=== PATIENT | female | born 1975 | race Caucasian/White ===

== ENCOUNTER → 2017-09-28 12:12 | Outpatient (CLI) | payer OTHER, SELFPAY ==
--- NOTE | 2017-09-28 12:16 | HPBI_ITS ---
MAMMOGRAPHY - BILATERAL DIAGNOSTIC REASON FOR EXAM: Female, 42 years old. Bilateral breast lumps. PERTINENT HISTORY: Non-contributory. TECHNIQUE: Digital bilateral breast audrey (3D mammographic acquisition) in the CC and MLO projections. 2-D mediolateral oblique (MLO) and craniocaudad (CC) views of both breasts were obtained. CAD: Full Field Digital Mammography with Computer Added Detection was performed. COMPARISON: None. Baseline examination. FINDINGS: Breast Composition: There are scattered areas of fibroglandular density. There are no dominant masses or suspicious calcifications. Small axillary lymph nodes are seen in both axillary regions. No other significant abnormalities are identified. HPBI/DIAG MAMM W/CAD, BILAT IMPRESSION: Negative diagnostic mammogram. With the patient's history of bilateral palpable nodules, correlation with ultrasound is recommended. ASSESSMENT CATEGORY: BIRADS Category 0: Incomplete. Need additional imaging evaluation. A letter regarding these results will be sent to the patient by the facility within 30 days. Approximately 10% of breast cancers are not detected by mammography. A normal mammogram should not delay biopsy of a clinically suspicious abnormality. Electronically Signed: Lino Munoz MD at 16:00 EDT Tel [phone], Service support ,
--- NOTE | 2017-09-28 12:16 | US_ITS ---
STUDY: ULTRASOUND BREAST - RIGHT REASON FOR EXAM: Female, 42 years old. Palpable lump in the right breast. TECHNIQUE: Axial and longitudinal images of the RIGHT breast were performed with a high resolution ultrasound transducer. COMPARISON: None. FINDINGS: RIGHT Breast: The upper half of the right breast was examined by ultrasound. There is homogeneous fibroglandular tissue. No solid or cystic mass lesion is seen. IMPRESSION: Unremarkable sonographic examination of the upper half of the right breast. ASSESSMENT CATEGORY: BIRADS Category 1: Negative. A letter regarding these results will be sent to the patient by the facility within 30 days. Electronically Signed: Lino Munoz MD at 13:26 EDT Tel [phone], Service support , STUDY: ULTRASOUND BREAST - LEFT REASON FOR EXAM: Female, 42 years old. Palpable lump left breast. TECHNIQUE: Axial and longitudinal images of the LEFT breast were performed with a high resolution ultrasound transducer. COMPARISON: None. FINDINGS: LEFT Breast: The upper half of the left breast was examined by ultrasound. There is a homogeneous fibroglandular tissue. No solid or cystic mass lesion is seen. US/Breast Limited Unilateral IMPRESSION: Unremarkable sonographic examination of the upper half of the left breast. ASSESSMENT CATEGORY: BIRADS Category 1: Negative. A letter regarding these results will be sent to the patient by the facility within 30 days. Electronically Signed: Lino Munoz MD at 13:27 EDT Tel [phone], Service support ,
== END ==
PROVIDERS: Family Provider Family Medicine; PCP Family Medicine; Visit Provider Obstetrics & Gynecology
DX: N60.11 Diffuse cystic mastopathy of right breast (principal); N60.12 Diffuse cystic mastopathy of left breast; N63.10 Unspecified lump in the right breast, unspecified quadrant; N63.20 Unspecified lump in the left breast, unspecified quadrant
CPT/HCPCS: 76642; 77062; 77066; G0279

== ENCOUNTER → 2018-06-15 10:56 | Outpatient (CLI) | payer OTHER, SELFPAY ==
[2018-06-15 14:35] LABS: Anion Gap 8 (5-15); BUN 6 mg/dL (7-18); BUN/Creat Ratio 8.4 RATIO (10-20); Calcium,Total 9.3 mg/dL (8.5-10.1); Chloride 104 mmol/L (98-107); Cholesterol 266 mg/dL (200); Creatinine, Serum 0.72 mg/dL (0.55-1.02); EST Glomerular Filtration Rate 95 mL/min (>60); Est Glom Filt Rate - Afr Amer 115 mL/min (>60); Glucose 80 mg/dL (74-106); High Density Lipoprotein 35 mg/dL; Sodium Level 141 mmol/L (136-145); Triglycerides 334 mg/dL; Very Low Density Lipoprotein 67 mg/dL (5-40)
--- OUTSIDE RECORDS SUMMARY | 2018-08-10 08:32 | XMS RPT_ITS ---
:1975 Author Organization OHIP Care Team Providers Name Role Phone KENRICKMIGUEL ([facility]) Attending Unavailable Jade Triplett Attending Unavailable Jolliff, Fallon Referring Unavailable Jolliff, Fallon Primary Care Unavailable Jade Triplett Attending Unavailable Jolliff, Fallon Primary Care Unavailable MarcJade conklin Referring Unavailable Jolliff, Fallon Attending Unavailable Jolliff, Fallon Primary Care Unavailable PROBLEMS PROBLEMS DATE TYPE CONDITION / CODE ATTENDING STATUS SOURCE 09/21/2017 Unknown Z12.31 - Betty Triplett Encounter for [facility] mammogram for Repository malignant neoplasm of breast / Z12.31(ICD-10) PROCEDURES PROCEDURES No Procedure Records FoundRESULTS RESULTS BASIC METABOLIC Collected: 06/15/2018 Status: F Source: [place] PROFILE (BMP) 10:57 AM [facility] REPOSITORY TYPE CODE TESTS RESULT OUT OF RANGE REFERENCE UNITS LAB L501.0100 74-106 mg/dL Normal GLU 80 Result Comment: Please note revised GLUCOSE reference range effective 2017. LAB L501.1000 7-18 mg/dL Low BUN 6 LAB L501.1100 0.55-1.02 mg/dL Normal CREAT,SERUM 0.72 Result Comment: The validity of the calculated GFR AND GFRAA in patients over 70 years has not been determined. Clinical correlation is essential. LAB L501.1110 >60 mL/min Normal EST GFR 95 Result Comment: Non- GFR Calc LAB L501.1115 >60 mL/min Normal EST GFR - AA 115 Result Comment: GFR Calc LAB L501.1300 10-20 RATIO Low BUN/CRE 8.4 LAB L501.2200 8.5-10.1 mg/dL Normal CA 9.3 LAB L501.5300 136-145 mmol/L Normal NA 141 LAB L501.5600 3.5-5.1 mmol/L Normal K 4.0 LAB L501.5900 98-107 mmol/L Normal CL 104 LAB L501.6100 21.0-32.0 mmol/L Normal CO2 29.0 LAB L501.6200 5-15 Normal GAP 8 Performed By: #### L500.2500, L500.4100 #### [facility] [address]. [place], [place], [id number] LIPID PROFILE Collected: 06/15/2018 Status: F Source: [place] 10:57 AM [facility] REPOSITORY TYPE CODE TESTS RESULT OUT OF RANGE REFERENCE UNITS LAB L501.4900 200 mg/dL High CHOL 266 Result Comment: <200 mg/dL Desirable 200-240 mg/dL Borderline >240 mg/dL High Risk LAB L501.5000 mg/dL High TRIG 334 Result Comment: The drugs N-Acetylcysteine and Metamizole may falsely depress this assay. Serum Triglycerides Reference Interval Normal <150 mg/dL Borderline high 150 - 199 mg/dL High 200 - 499 mg/dL Very High > or = 500 mg/dL LAB L501.6400 mg/dL Low HDL 35 Result Comment: The drugs N-Acetylcysteine and Metamizole may falsely depress this assay. Reference Range HDL <40 mg/dL Low HDL Cholesterol HDL >or= 60 mg/dL High HDL Cholesterol LAB L501.6500 0-130 mg/dL High LDL 164 LAB L501.6600 5-40 mg/dL High VLDL 67 Performed By: #### L500.2500, L500.4100 #### [facility] [address]. [place], [place], [id number] PROGRESS Observed: 04/01/2018 Status: COMPLETED Source: [place] 3:02 PM [facility] REPOSITORY O ID: [id number] Author: Miguel Martinez Service: (none) Author Type: Nurse Practitioner Type: Progress Notes Filed: 04/01/2018 4:30 PM Note Text: Telemedicine Visit - Distance Health Virtual Visit Note Patient seen on [facility] Care Online platform. Location of patient: [place] History of Present Illness Mindi Corral is a 42 year old old female presenting with right lower extremity skin concerns. History was obtained from: patient The problem is on the right lower leg(s) for the past 10 day(s) and is gradually worsening. The skin described as painful and burning. Symptoms began while working at [employer], constantly walking and standing since 03/24 (6 days) and developed pressure ulcers on her right foot due to wearing cowboy boots. Boots became wet and uncomfortable while walking and standing in the rainy weather. The prior dermatologic history includes no rash like this. The patient reports no new exposures The patient also complains of joint tenderness and burning sensation The patient denies no other pertinent symptoms. The patient has tried rubbing alcohol for relief. PAST MEDICAL HISTORY Diagnosis Date - Fibroids Uterine - Hyperlipidemia - Hypertension PAST SURGICAL HISTORY Procedure Laterality Date - DELIVERY ONLY 08/2004, 03/2008 - F OVARIAN CYSTECTOMY 1995 - HYSTERECTOMY HX 2009 fibroids - LAP REPAIR BLADDER INJURY 03/2008 Bladder cut with c/s - LAPAROSCOPIC CHOLEYCYSTECTOMY 09/2004 - LAPAROSCOPY W/LYSIS OF ADHESION 06/1996 FAMILY HISTORY Problem Relation Age of Onset - Hypertension Mother - Thyroid Mother - Hypertension Father - Heart Father ID - Diabetes Father - Lipids Father - Thyroid Father - Hypertension Maternal Grandmother - Diabetes Maternal Grandmother - Lipids Maternal Grandmother - Thyroid Maternal Grandmother - Hypertension Maternal Grandfather - Lipids Maternal Grandfather - Cancer Maternal Grandfather skin, lymphoma, prostate - Hypertension Paternal Grandmother - Hypertension Paternal Grandfather - Stroke Paternal Grandfather - Thyroid Maternal Uncle ALLERGIES No Known Allergies bisoprolol-hydrochlorothiazide (ZIAC) 5-6.25 mg per tablet Take 1 tablet by mouth once daily. DULoxetine (CYMBALTA) 60 mg capsule Take 60 mg by mouth once daily. LORazepam 1 mg tablet Take 1 mg by mouth as needed. mupirocin (BACTROBAN) 2 % ointment Apply 1 application to affected area twice daily for 10 days. cephALEXin (KEFLEX) 500 mg capsule Take 1 capsule by mouth twice daily for 7 days. ibuprofen (MOTRIN) 800 mg tablet Take 1 tablet by mouth every 8 hours as needed for Pain. CPAP Video Exam (Examination performed via Video enabled technology) General appearance: Alert, oriented, pleasant, in NAD :Yes Ill appearing :No Lethargic appearing :No Respiratory distress :No Skin: right anterior ankle small dime size ulcer appears dry with erythematous pressure point. +tenderness with self palpation and warm to touch. Right foot dorsal dime size ulcer appears dry with erythematous pressure point. +tenderness with self palpation and warm to touch. ASSESSMENT/PLAN: 1. Skin infection - ICD9: 686.9, ICD10: L08.9 - Begin treatment with Cephalaxin (Keflex) - No lymphangetic streaking, this was defined for patient to watch for and to seek medical care immediately if appears - Follow up for recheck in three days - MUPIROCIN 2 % TOPICAL OINTMENT - CEPHALEXIN 500 MG CAPSULE - IBUPROFEN 800 MG TABLET - Dry skin care instructions reviewed - Use mild soap like Dove, Aveeno or Cetaphil - Do not scratch and break the skin; keep area clean and dry - Use cool compresses as needed - Avoid exposure to irritant if known -wear comfortable form fitted shoes. - Advise to elevate extremity and ice 2-3x daily - Follow up if symptoms persist or worsen. - Red flags discussed for immediate in person care - All questions answered Miguel Martinez APRN.DRAIN CLEANER PLUMBER If you let us know who your primary care provider is, we will send them a notification of today?s visit through our electronic medical records system. Since not all providers have access to our notifications, we strongly encourage you to share the following record of today?s visit with your primary care provider at your next visit. This will help in providing you the best care. EXPRESS CARE PATIENT INFO SKIN INFECTION OVERVIEW Cellulitis is an infection of the skin and soft tissue of the skin. The infection is usually caused by bacteria that normally live on the skin, such as staphylococci (Staph) or streptococci (Strep). The infection develops when there is a break in the skin, such as a wound or injury, which may be minor. This allows bacteria to enter the skin and grow, causing infection and swelling. Most cases of cellulitis are mild and heal completely with antibiotic treatment. However, the infection can become severe and cause a bodywide infection if left untreated. It is important to seek medical care promptly if you could have a skin infection. SKIN INFECTION RISK FACTORS Certain conditions increase the risk of developing cellulitis. These include: ? Recent injury to the skin (a wound, abrasion, cut, recent shaving, or injection drug use) ? Swelling of the skin due to radiation therapy ? Current skin infection, such as athlete's foot or impetigo ? Accumulation of fluid (edema) due to poor circulation, heart failure, liver disease, or past surgery to remove lymph nodes ? Being overweight ? Chronic skin conditions, such as eczema or psoriasis However, cellulitis can also develop in people who have no known risk factors. SKIN INFECTION SYMPTOMS Cellulitis ? The most common symptom of cellulitis is pain or tenderness. Other cellulitis symptoms can include swelling, warmth, and redness in a distinct area of skin. These symptoms usually worsen and the redness may expand over the course of a few days. The skin is usually smooth and shiny rather than raised or bumpy. Fever and chills are not common. The most common areas of the body for cellulitis to develop include the legs and the arms; it can also develop around the eye, on the abdominal wall, in the mouth, and around the anus. Other skin infections ? Other types of skin infections include abscesses, furuncles (boils), and carbuncles. These usually cause a collection of pus under the skin. Skin that is raised, reddened, tender, and pus-filled may be caused by a skin infection known as methicillin-resistant Staphylococcus aureus (MRSA). DO I NEED TO BE EXAMINED? There are many types and causes of skin infections, and it is important to know the most likely cause of the infection before beginning treatment. Using the wrong treatment could allow the infection to worsen. To ensure that the correct treatment is used, it is important to be evaluated by a healthcare provider. SKIN INFECTION TREATMENT Cellulitis treatment includes antibiotics as well as treatment of any underlying condition that led to the skin infection. Elevate the area ? Elevating the arm or leg above the level of the heart can help to reduce swelling and speed healing. Keep the area clean and dry ? It is important to keep the infected area clean and dry. You can shower or bathe normally, and pat the area dry with a clean towel. You can use a bandage or gauze to protect the skin, if needed. Do not use any antibiotic ointments or creams. Antibiotics ? Most people with cellulitis are treated with an antibiotic that is taken by mouth for one to two weeks. The best antibiotic depends upon your situation. If the infection is severe, you may need to be hospitalized and treated with antibiotics given into a vein (IV). It is important to take the antibiotic exactly as recommended and to finish the entire course of treatment. Skipping doses or ending treatment early could potentially allow the bacteria to become resistant and require longer treatment. Time to heal ? The swelling, warmth, and redness should begin to improve within one to three days after starting antibiotics, although these symptoms can persist for two weeks. If the reddened area becomes larger, more swollen, or more tender, call your healthcare provider. He or she may want to reexamine you to determine if further testing or an alternate antibiotic are needed. SKIN INFECTION PROGNOSIS In most cases, you will recover completely from an episode of cellulitis without any complications. If you have skin infection risk factors talk to your healthcare provider to determine if there are steps you can take to minimize the risk of infections in the future. BREAST LIMITED Observed: 09/28/2017 Status: F Source: [place] UNILATERAL 12:16 PM [facility] REPOSITORY [facility] Imaging Services [address] [place] [address] Breast Limited Unilateral MR#: [id number] Acct: [id number] Name: MINDI CORRAL Rep #: [id number] : 1975 F 42 From: Lino Munoz MD PCP: Fallon Guevara MD Status: REG CLI Study: Breast Limited Unilateral Date of Exam: 09/28/17 Exam# [id number] Ordering Dr: Jade Triplett MD STUDY: ULTRASOUND BREAST - RIGHT REASON FOR EXAM: Female, 42 years old. Palpable lump in the right breast. TECHNIQUE: Axial and longitudinal images of the RIGHT breast were performed with a high resolution ultrasound transducer. COMPARISON: None. FINDINGS: RIGHT Breast: The upper half of the right breast was examined by ultrasound. There is homogeneous fibroglandular tissue. No solid or cystic mass lesion is seen. IMPRESSION: Unremarkable sonographic examination of the upper half of the right breast. ASSESSMENT CATEGORY: BIRADS Category 1: Negative. A letter regarding these results will be sent to the patient by the facility within 30 days. Electronically Signed: Lino Munoz MD at 13:26 EDT Tel [phone], Service support , STUDY: ULTRASOUND BREAST - LEFT REASON FOR EXAM: Female, 42 years old. Palpable lump left breast. TECHNIQUE: Axial and longitudinal images of the LEFT breast were performed with a high resolution ultrasound transducer. COMPARISON: None. FINDINGS: LEFT Breast: The upper half of the left breast was examined by ultrasound. There is a homogeneous fibroglandular tissue. No solid or cystic mass lesion is seen. US/Breast Limited Unilateral IMPRESSION: Unremarkable sonographic examination of the upper half of the left breast. ASSESSMENT CATEGORY: BIRADS Category 1: Negative. A letter regarding these results will be sent to the patient by the facility within 30 days. Electronically Signed: Lino Munoz MD at 13:27 EDT Tel [phone], Service support , CC: Fallon Guevara MD; Jade Triplett MD Shipping Room Helper: Signed DIAG MAMM W/CAD, Observed: 09/28/2017 Status: F Source: [place] BILAT 12:16 PM [facility] REPOSITORY [facility] Imaging Services [address] [place] [address] DIAG MAMM W/CAD, BILAT MR#: [id number] Acct: [id number] Name: MINDI CORRAL Rep #: [id number] : 1975 F 42 From: Lino Munoz MD PCP: Fallon Guevara MD Status: REG CLI Study: DIAG MAMM W/CAD, BILAT Date of Exam: 09/28/17 Exam# [id number] Ordering Dr: Jade Triplett MD MAMMOGRAPHY - BILATERAL DIAGNOSTIC REASON FOR EXAM: Female, 42 years old. Bilateral breast lumps. PERTINENT HISTORY: Non-contributory. TECHNIQUE: Digital bilateral breast audrey (3D mammographic acquisition) in the CC and MLO projections. 2-D mediolateral oblique (MLO) and craniocaudad (CC) views of both breasts were obtained. CAD: Full Field Digital Mammography with Computer Added Detection was performed. COMPARISON: None. Baseline examination. FINDINGS: Breast Composition: There are scattered areas of fibroglandular density. There are no dominant masses or suspicious calcifications. Small axillary lymph nodes are seen in both axillary regions. No other significant abnormalities are identified. [facility]/DIAG MAMM W/CAD, BILAT IMPRESSION: Negative diagnostic mammogram. With the patient's history of bilateral palpable nodules, correlation with ultrasound is recommended. ASSESSMENT CATEGORY: BIRADS Category 0: Incomplete. Need additional imaging evaluation. A letter regarding these results will be sent to the patient by the facility within 30 days. Approximately 10% of breast cancers are not detected by mammography. A normal mammogram should not delay biopsy of a clinically suspicious abnormality. Electronically Signed: Lino Muonz MD at 16:00 EDT Tel [phone], Service support , CC: Fallon Guevara MD; Jade Triplett MD Shipping Room Helper: Signed WIND TUNNEL TECHNICIAN OFFICE VISIT Observed: 09/21/2017 Status: F Source: [place] REPORT 1:24 PM [facility] [address] [place] [address]. 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 Required: No Accompanied by: Self Is patient in pain?: Yes (RLQ) Pain scale (1-10): 2 Allergies ciprofloxacin [From Cipro] Adverse Reaction (Verified 11/25/13 12:46) Vomiting ciprofloxacin HCl [From Cipro] Adverse Reaction (Verified 11/25/13 12:46) Vomiting Sulfa (Sulfonamide Antibiotics) Adverse Reaction (Verified 11/25/13 12:46) Vomiting Medications Bisoprol/Hydrochlorothiazide [Ziac 5/6.25 MG (Beta Kelsy)] 11/25/13 [History Confirmed 09/21/17] Lorazepam [Ativan] 1 mg PO 11/25/13 [History Confirmed 09/21/17] duloxetine 60 mg capsule,delayed release 60 mg PO QDAY 09/21/17 [History Confirmed 09/21/17] Is last menstrual period known: No Post menopausal: No Patient : No : No PFSH Medical History Anxiety (Chronic) Depression (Chronic) Hypertension (Chronic) Scar tissue (Resolved 1995) bladder (Resolved 2007) Surgical History H/O section (Resolved) H/O: hysterectomy (Resolved 2009) Hx of cholecystectomy (Resolved 2004) Ovarian cyst (Resolved 1995) Family History Father Heart disease Diabetes Type 2 Hyperlipidemia Mother Thyroid disorder Social History adopted: No household members: family housing: house number of children: 2 current occupational status: employed current occupation: [employer] Smoking Status: Never smoker second hand exposure: Yes alcohol intake: never substance use type: does not use seatbelt use: always do you feel safe at home: Yes additional social history: Orrie- Pregancy History 6 Elective abortions Hx Para 2 Spontaneous abortions Past Pregnancies Del. 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 Last PAP: History of abnormal PAP: no Last mammogram: History of abnormal mammogram: Colon cancer screening: Other preventative health care screenings: Female Reproductive History Questions: Metorrhagia: No, Sexually active: Yes, Dyspareunia: No Menopausal Symptoms: Yes hot flashes, Yes night sweats, No weight change, No mood changes, No difficulty concentrating, No sleep problems, No change in libido ROS Const Constitutional: Reports as per HPI, weight loss (intentional) and night sweats; denies poor appetite, fatigue, increased appetite or weight gain Cardio Card: Denies chest pain Resp Resp: Denies dyspnea or cough GI GI: Reports as per HPI; denies bloating, abdominal pain, constipation, vomiting or nausea : Reports as per HPI, urinary frequency, other and hot flashes; denies blood in urine, vaginal odor, vaginal itching, vaginal dryness, vaginal discharge, urinary urgency, urinary incontinence, pelvic pain, painful urination, difficulty urinating, prolapse symptoms or nipple discharge Skin Skin/Breast: Denies nipple discharge, breast pain, breast skin changes, breast lump or changing lesions Psych Psych: Denies difficulty concentrating or change in sex drive Exam Const General: cooperative, healthy appearing, comfortable, no acute distress, well developed, well groomed HENMT Head: normal to inspection, normocephalic Ears: hearing grossly normal bilaterally, external ears normal Nose: external nose normal Face and sinus: normal facial exam Neck Neck: normal visual inspection, full ROM, no lymphadenopathy Thyroid: thyroid normal Chest Chest palpation AND inspection: normal inspection of the chest Breast inspection: normal inspection of the breasts, normal inspection of the axillae Breast palpation: normal palpation of the axillae, no axillary lymphadenopathy, abnormal palpation of the breast (right 2x1 cm cystic area 6 o clock, left 4 o clock 1 cm nodular area) Resp Effort AND Inspection: normal respiratory effort GI Inspection: normal to inspection, non-distended Palpation: no guarding, soft, no hepatosplenomegaly General: bladder normal to palpation External Female Exam: normal external appearance, normal appearance of the urethra, no lesions Urethra: normal appearance of the urethra, normal palpation Speculum Exam - Vagina: normal appearance of the vagina, normal vaginal discharge Bimanual Exam- Vagina AND Uterus: bladder normal to palpation Bimanual Exam- Adnexa, other: normal adnexae, no adnexal masses, adnexae non-tender Skin General: no rashes or lesions noted Neuro General: alert, moves all extremities, no focal motor deficits Extrem General: no pedal edema, normal to inspection Psych Appearance: grossly normal Mental Status: mental status grossly normal Affect: normal affect Speech and Movement: speech and movement normal Attitude: cooperative Assessment AND Plan Problems 1. Encounter for gynecological examination without abnormal finding Z01.419 2. Bilateral breast lump N63.10; N63.20 3. Bilateral fibrocystic breast changes N60.11; N60.12 Plan Cervical cancer screening: na [facility] Breast cancer screening: diag mamm and us ordered other health maintenance examination reviewed and up to date. Encouraged maintenance of a healthy weight and active lifestyle and handout given. Calcium/vitamin D recommendations provided. Annual exam handout including recommendations for good health guidelines and basic screening information given. Problem list up to date, see problem list details for any additional plan information. Follow up in one year for annual health maintenance exam or sooner if needed. Orders Orders: Medications Discontinued: oxycodone-acetaminophen 5-325 mg Disconti1 - 2 tabs PO Q4H PRN PRN Pain Carito cooper Reason: Pt no longer taking Coding Level of Care Code Off vis,est,prev 18-39yrs Diagnoses Encounter for gynecological examination without abnormal finding Z01.419 Gynecological examination findings: abnormal findings ABSENT Bilateral breast lump N63.10; N63.20 Bilateral fibrocystic breast changes N60.11; N60.12 09/21/17 1324 <Electronically signed by Jade Triplett MD> Date Jade Triplett MD Cosigner Signature: Date (if applicable) CC: ALLERGIES ALLERGIES DATE TYPE / CODE NAME / CODE REACTION SEVERITY SOURCE 11/27/2013 DRUG CIPROFLOXACIN Vomiting [facility] INGREDI/419 [address] [place] [address]39[address]([facility] Repository ED CT) 11/27/2013 Drug SULFA (SULFONAMIDE Vomiting [facility] Class/57042 ANTIBIOTICS) [place] 1003(SNOMED Repository CT) 11/25/2013 Drug ciprofloxacin Vomiting Unknown Geoffrey Allergy/416 HCl/[id number](RXNO Community 008316([facility] ED CT) Repository 11/25/2013 Drug Sulfa (Sulfonamide Vomiting Unknown Geoffrey Allergy/416 Antibiotics)/O40570 Community 119475([facility] 0491([facility] ED CT) Repository 11/25/2013 Drug ciprofloxacin/F0060 Vomiting Unknown Geoffrey Allergy/416 66965(RXNORM) Community 125496([facility] ED CT) Repository ENCOUNTERS ENCOUNTERS ADMIT/DISCHARGE ACCOUNT ADMITTING ENCOUNTER LOCATION SOURCE NUMBER CLASS 06/15/2018 [id number] [facility] ing:MFPLAB Repository 04/01/2018/04/02/20 [id number] Ambulatory [address] [place] Repository 09/28/2017 [id number] Ambulatory [facility] ing:US Repository 09/21/2017/09/22/19 [id number] Ambulatory BMS[address] [place] [address] [place].[facility] Repository PAYERS PAYERS ENCOUNTER GUARANTOR PAYER SUBSCRIBER SOURCE 06/15/2018 MINDI [id number] Insurance:AETNAPolicy FlickingerDOB: Community ANGLING [place]: [id number] Repository [address]Rrf: [phone]) Date:[id number] [phone] (HP) [id number] [place] [id number]: 06/15/2018 Secondary NOT GIVENUNK [place] Insurance:SELF PAY [facility] Effective Repository Date:2018-06-15 09/28/2017 MINDI Primary Ora L Geoffrey [id number] Insurance:AETNAPolicy FlickingerDOB: Community AN[place]ING Number: [id number] [place], [place] [id number] Repository [address]Puh: [phone]) Date:[id number] [phone] (HP) [id number] [place] [id number]: 09/28/2017 Secondary NOT GIVENUNK [place] Insurance:SELF PAY [facility] Number: Effective Repository Date:2017-09-22 09/21/2017 MINDI Primary Ora L Geoffrey [id number] Insurance:AETNAPolicy FlickingerDOB[facility] ANGLING Number: [id number] Repository 33325Wwq: ([phone]) Date:[phone] (HP) [id number] [address]VB: 09/21/2017 Secondary NOT GIVENUNK [place] Insurance:SELF PAY [facility] Number: Effective Repository Date:2017-08-16
== END ==
LOC: MFPLAB 10:56
PROVIDERS: Family Provider Family Medicine; PCP Family Medicine; Visit Provider Family Medicine
DX: I10 Essential (primary) hypertension (principal)
CPT/HCPCS: 36415; 80048; 80061

== ENCOUNTER → 2018-12-26 | Outpatient (CLI) | payer OTHER, SELFPAY ==
[2017-09-21 11:38] VITALS: BMI 30.4
[2018-12-26 18:47] LABS: Anion Gap 4 (5-15); BUN 6 mg/dL (7-18); BUN/Creat Ratio 8.7 RATIO (10-20); Calcium,Total 9.6 mg/dL (8.5-10.1); Chloride 102 mmol/L (98-107); Creatinine, Serum 0.69 mg/dL (0.55-1.02); EST Glomerular Filtration Rate 99 mL/min (>60); Est Glom Filt Rate - Afr Amer 120 mL/min (>60); Glucose 82 mg/dL (74-106); Potassium 3.9 mmol/L (3.5-5.1); Sodium Level 137 mmol/L (136-145)
== END | disposition home or self-care (01) ==
LOC: MFPLAB 14:55
PROVIDERS: Family Provider Family Medicine; PCP Family Medicine; Referring Provider Family Medicine; Visit Provider Family Medicine
DX: I10 Essential (primary) hypertension (principal)
CPT/HCPCS: 36415; 80048

== ENCOUNTER → 2019-12-03 16:48 | Outpatient (CLI) | payer MEDICAID, SELFPAY ==
[2017-09-21 11:38] VITALS: BMI 30.4
[2019-12-03 18:17] LABS: AST(SGOT) 12 U/L (15-37); Alanine Aminotransfer ALT/SGPT 17 U/L (13-56); Anion Gap 7 (5-15); BUN 5 mg/dL (7-18); BUN/Creat Ratio 7.1 RATIO (10-20); Calcium,Total 9.8 mg/dL (8.5-10.1); Chloride 102 mmol/L (98-107); Cholesterol 306 mg/dL (200); Creatinine, Serum 0.71 mg/dL (0.55-1.02); EST Glomerular Filtration Rate 96 mL/min (>60); Est Glom Filt Rate - Afr Amer 116 mL/min (>60); Glucose 81 mg/dL (74-106); High Density Lipoprotein 37 mg/dL; Potassium 3.7 mmol/L (3.5-5.1); Sodium Level 139 mmol/L (136-145); Triglycerides 396 mg/dL; Very Low Density Lipoprotein 79 mg/dL (5-40)
== END ==
PROVIDERS: PCP Family Medicine; Referring Provider Family Medicine; Visit Provider Family Medicine
DX: I10 Essential (primary) hypertension (principal); E78.5 Hyperlipidemia, unspecified
CPT/HCPCS: 36415; 80048; 80061; 84450; 84460

== ENCOUNTER 2020-08-19 17:24 | Outpatient (RCR) | payer OTHER, MEDICAID, SELFPAY ==
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
== END 2020-08-19 19:00 | disposition home or self-care (01) ==
LOC: PT 17:24
PROVIDERS: PCP Family Medicine; Referring Provider Family Medicine; Visit Provider Family Medicine
DX: M50.10 Cervical disc disorder with radiculopathy, unspecified cervical region (principal)
CPT/HCPCS: 97162

== ENCOUNTER → 2020-08-26 | Outpatient (CLI) | payer MEDICAID, SELFPAY | END | disposition home or self-care (01) | LOC: LABSPEC 10:27 | PROVIDERS: PCP Family Medicine; Visit Provider Family Medicine | DX: Z20.822 Contact with and (suspected) exposure to COVID-19 (principal) | CPT/HCPCS: 87635; U0005; U0003 ==

== ENCOUNTER → 2020-10-12 10:47 | Outpatient (CLI) | payer OTHER, SELFPAY ==
[2020-09-14 13:18] VITALS: BMI 30.7
--- NOTE | 2020-10-12 10:48 | MRI_ITS ---
STUDY: MRI CERVICAL SPINE WITHOUT CONTRAST REASON FOR EXAM: Female, 45 years old. CERVICALGIA TECHNIQUE: Standardized fat and water weighted pulse sequences were obtained in the sagittal and axial planes. COMPARISON: None FINDINGS: Normal foramen magnum and brainstem-cervical cord junction. There is straightening of the normal cervical lordosis. C2-3: There is minimal disc space narrowing and endplate spondylosis. There is no significant disc herniation, central canal or foraminal stenosis. C3-4: There is minimal disc space narrowing and endplate spondylosis. There is no significant disc herniation, central canal or foraminal stenosis. C4-5: There is moderate disc space narrowing and endplates spondylosis. Moderate disc osteophyte complex with severe central canal stenosis. Uncovertebral arthropathy with moderate right and mild left foraminal stenosis. C5-6: There is moderate disc space narrowing and endplates spondylosis. Moderate disc osteophyte complex with severe central canal stenosis and impingement of the spinal cord without increased cord signal, consistent with hydrosyringomyelia. Uncovertebral arthropathy with severe right and severe left foraminal stenosis. C6-7: There is moderate disc space narrowing and endplates spondylosis. Moderate disc osteophyte complex with severe central canal stenosis and impingement of the spinal cord without increased cord signal, consistent with hydrosyringomyelia. Uncovertebral arthropathy with mild right and moderate left foraminal stenosis. C7-T1: There is minimal disc space narrowing and endplate spondylosis. There is no significant disc herniation, central canal or foraminal stenosis. MRI/Spine Cervical (Routine) IMPRESSION: C5-C7: Severe central canal stenosis with cord compression. Moderate/severe multilevel degenerative changes as described above. N.B. : The above information has been verbally conveyed by Stefani Chaves MD to Dr. ANASTASIA DASILVA MD, on 10/14/2020 15:31:32 (ET). Electronically Signed: Stefani Chaves MD at 15:32 EDT Tel , Service support ,
== END ==
PROVIDERS: PCP Family Medicine; Referring Provider Orthopaedic Surgery; Visit Provider Orthopaedic Surgery
DX: M54.2 Cervicalgia (principal); G56.20 Lesion of ulnar nerve, unspecified upper limb
CPT/HCPCS: 72141

== ENCOUNTER 2020-10-15 07:46 | Emergency (ER) | payer OTHER, SELFPAY ==
[2020-09-14 13:18] VITALS: BMI 30.7
[2020-10-15 07:47] VITALS: BP 162/103; PULSE 66; RESP 18; TEMP 36.3; O2SAT 99; BMI 32.7
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
[2020-10-15 09:04] VITALS: BP 135/86; PULSE 65; RESP 16; O2SAT 99
== END 2020-10-15 09:04 | disposition home or self-care (01) ==
PROVIDERS: Emergency Provider Emergency Medicine; PCP Family Medicine
DX: Z04.1 Encounter for examination and observation following transport accident (principal); I10 Essential (primary) hypertension; E78.5 Hyperlipidemia, unspecified; V47.0XXA Car driver injured in collision with fixed or stationary object in nontraffic accident, initial encounter; Y93.I9 Activity, other involving external motion; Y92.410 Unspecified street and highway as the place of occurrence of the external cause; Y99.8 Other external cause status
CPT/HCPCS: 70450; 93005; 99284

== ENCOUNTER → 2020-11-19 | Outpatient (CLI) | payer OTHER, SELFPAY ==
[2020-11-06 14:59] VITALS: BMI 30.7
== END | disposition home or self-care (01) ==
LOC: LABSPEC 15:29
PROVIDERS: PCP Family Medicine; Referring Provider Family Medicine; Visit Provider Family Medicine
DX: T81.30XA Disruption of wound, unspecified, initial encounter (principal)
CPT/HCPCS: 87070; 87075; 87077; 87186; 87205

== ENCOUNTER 2020-12-15 14:00 | Outpatient (RCR) | payer OTHER, SELFPAY ==
[2020-11-06 14:59] VITALS: BMI 30.7
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
--- NOTE | 2020-12-07 10:58 | HP.OTEVAL_ITS ---
Patient's Visit Information SUMA HURTADO is a 45 year old F, referred to Occupational Therapy by Dr. Fortino Vargas MD, with a diagnosis of cervical spondylosis with myelopathy right arm weakness. Date of Evaluation: 12/07/20 Occupational Therapist: Savi Cash, ALEKR/Ferdinand, CHT - Subjective This 45 year old female was seen for OT eval with dx of cervical spondylosis with myelopathy right arm weakness. pt underwent c3-T1 fusion on October 20, 2020. pt states her neck is better states prior to sx she would drag her right leg. pt states she had tingling/numbness in bilateral UE//hands. when she woke up from sx she could not use her right arm. left arm she had motion but still has tingling in bilateral hands/arms. 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 with ADLs and IADls. - ADLs Miscellaneous: Handle money (change), Use computer keyboard - ROM ROM Comments: pt demo full ROM - Strength Licensed Final Expense Agents: right 35# left 65# Lateral Pinch: right 16# left 14# Tripod Pinch: right 12# left 16# Tip-to-Tip Pinch: right 12# left 12# - Sensation Thumb: right 3.22 left 3.22 Index: right 3.22 left 3.22 Middle: right 3.22 left 3.22 Ring: right 3.84 left 4.08 Little: right 3.61 left 4.74 - Nine Hole Peg Right: 24.44 sec. Left: 29. 32 sec. - Quick DASH-Disab of Arm,Shoulder& Hand Quick DASH Score: 41.6650 - Goals Goal:: pt will demo a increase in right penetration tester strength to 50# or greater to increase pts ind. with ADls and IADLs by d/c Goal:: pt will demo the ability to type 2 sentences in less than 25 sec. without errors 4/5 trials demo a increase in pts FMS. Goal:: pt will demo a increase in sensation demo by testing with monofilamets to 2.83 by d/c - Rehabilitation General Assessment: pt demo with weakness in right UE increasing need of support for ADLs and IADLs. pt would benefit from skilled OT services 2-3 x week for 4 weeks to increase pts strength and return to PLOF. Today therapist ed. pt on FM challenges ( picking up coins, tapping fingers to music, walking towel and pushing back out, rubber band digit abd, etc) to increase pts typing skills. pt demo understanding and agree to POC. Rehabilitation Potential: Good - Anticipated Interventions Strengthening, Fine Motor Coord/Maninder - Visit Plan Frequency: 2-3x /Week Duration: 4 Weeks TEXT: Thank you for the opportunity to evaluate your patient. For Medicare and Medicare HMO plans, please review the plan of care and approve it. It will need to be FAXED BACK to us at [phone] for Medicare purposes. Please let me know if there are questions or concerns regarding this plan of care. Physician Signature: Date:
--- NOTE | 2020-12-21 10:49 | HP.PT.NRP ---
SUMA HURTADO was seen in my office for initial evaluation on 11/11/20. The following Plan of Care was established for this patient: Initial Frequency: 2-3x /Week Initial Duration: 4-6 Weeks Patient/Client Instruction: Educate patient on: Condition, Plan of Care, Risk Factors, Benefits of Fitness Program For the Purpose of:: To improve self management Therapeutic Exercise to Include: Strength training, Body mechanics, Postural training, Flexibilty training, Neuromotor development, Passive ROM, Active ROM, Scapular Strength/Stabilization For the Purpose of:: To decrease pain, To increase ROM, To improve muscle performance and motor function, To increase tolerance to activity/condition/position, To improve ability of physical actions for home/community/work/leisure This patient was last seen in our office . Pertinent comments regarding their Physical therapy will appear below: I RECEIVED A NOTE STATING PATIENT CANCELLED ALL REMAINING PT WM'TS BECAUSE HER DOCTOR SAID SHE CAN DO THERAPY AT HOME. At this point I will be discontinuing this patient from physical therapy. I would be happy to see this patient again in the future if found appropriate by the physician. Thank you! Lori Herrera, PT, Cert MDT
== END 2020-12-15 19:00 | disposition home or self-care (01) ==
LOC: PT 14:00
PROVIDERS: PCP Family Medicine; Referring Provider Neurological Surgery; Visit Provider Neurological Surgery
DX: M47.12 Other spondylosis with myelopathy, cervical region (principal); M79.89 Other specified soft tissue disorders
CPT/HCPCS: 97110; 97112; 97162; 97164; 97166; 97530

== ENCOUNTER 2021-09-02 11:46 | Outpatient (CLI) | payer MEDICAID, SELFPAY ==
--- NOTE | 2021-09-02 11:51 | RAD_ITS ---
STUDY: X-RAY - CERVICAL SPINE REASON FOR EXAM: Female, 46 years old. TRAPEZIUS STRAIN TECHNIQUE: XR Spine Cervical 6 or More Views COMPARISON: None FINDINGS: Normal anterior atlantoaxial articulation. The odontoid process is obscured by the overlying hard palate on the open mouth view. Therefore, it is not fully evaluated by plain film. There is straightening of the normal cervical lordosis. There is multi-level endplate spondylosis. There is multi-level degenerative disc disease with multilevel disc space narrowing. There is multi-level osseous foraminal stenosis. Pedicle screws and spinal fixation hardware noted. No movement on the flexion or extension views. Hardware appears intact The soft tissue structures are unremarkable. RAD/Cerv Spine Obl/Flex/Ext Comp IMPRESSION: There are degenerative changes as noted above. The odontoid process is obscured by the overlying hard palate on the open mouth view. Therefore, it is not fully evaluated by plain film. There is mild straightening of the normal cervical lordosis. This can suggest neck strain. Electronically Signed: Bryan Nelson MD at 16:53 EST ,
== END 2021-09-02 23:59 | disposition home or self-care (01) ==
LOC: MTRAD 11:49
PROVIDERS: PCP Family Medicine; Referring Provider Family Medicine; Visit Provider Family Medicine
DX: S46.812A Strain of other muscles, fascia and tendons at shoulder and upper arm level, left arm, initial encounter (principal); X58.XXXA Exposure to other specified factors, initial encounter
CPT/HCPCS: 72052

== ENCOUNTER → 2022-09-20 | Outpatient (CLI) | payer BC, MEDICAID, SELFPAY ==
[2022-09-20 18:13] LABS: Microalbumin,Random Urine 5.1 mg/L (NO RANGE EST.); Microalbumin:Creatinine Ratio 10.9 mg/g CRE (<30 mg/g CRE)
[2022-09-20 18:22] LABS: Vitamin B12 249 pg/mL (211-911)
[2022-09-20 18:34] LABS: AST(SGOT) 14 U/L (15-37); Alanine Aminotransfer ALT/SGPT 18 U/L (13-56); Anion Gap 8 (5-15); BUN 5 mg/dL (7-18); BUN/Creat Ratio 6.3 RATIO (10-20); Calcium,Total 9.2 mg/dL (8.5-10.1); Chloride 101 mmol/L (98-107); Cholesterol 281 mg/dL (200); EST Glomerular Filtration Rate 82 mL/min (>60); Est Glom Filt Rate - Afr Amer 100 mL/min (>60); Glucose 120 mg/dL (74-106); High Density Lipoprotein 31 mg/dL; Potassium 3.3 mmol/L (3.5-5.1); Sodium Level 135 mmol/L (136-145); Thyroid Stim Hormone (TSH) 0.97 uIU/mL (0.358-3.74); Triglycerides 614 mg/dL
== END | disposition home or self-care (01) ==
LOC: MFPLAB 16:52
PROVIDERS: PCP Family Medicine; Referring Provider Family Medicine; Visit Provider Family Medicine
DX: R20.2 Paresthesia of skin (principal); I10 Essential (primary) hypertension; E78.5 Hyperlipidemia, unspecified
CPT/HCPCS: 36415; 80048; 80061; 82043; 82570; 82607; 84443; 84450; 84460

== ENCOUNTER → 2024-05-30 | Outpatient (CLI) | payer MEDICAID, SELFPAY ==
--- NOTE | 2024-05-30 16:29 | BI_ITS ---
MAMMOGRAPHY - BILATERAL SCREENING REASON FOR EXAM: Female, 49 years old. Routine annual screening examination. PERTINENT HISTORY: Non-contributory. TECHNIQUE: Digital bilateral breast caden (3D mammographic acquisition) in the CC and MLO projections. 2-D mediolateral oblique (MLO) and craniocaudad (CC) views of both breasts were obtained. CAD: Full Field Digital Mammography with Computer Added Detection was performed. COMPARISON: Comparison is made with prior study September 28, 2017. FINDINGS: Breast Composition: There are scattered areas of fibroglandular density. There are no dominant masses or suspicious calcifications. Stable small benign-appearing bilateral axillary lymph nodes. No other significant abnormalities are identified. There has been no significant change since the prior study. BI/SCRN MAMM (CAD)W/CADEN BILAT IMPRESSION: Stable bilateral screening mammogram. Yearly follow-up mammogram recommended. (A) ASSESSMENT CATEGORY: BIRADS Category 2: Benign. A letter regarding these results will be sent to the patient by the facility within 30 days. Approximately 10% of breast cancers are not detected by mammography. A normal mammogram should not delay biopsy of a clinically suspicious abnormality. [id number] Electronically Signed: Lino Muonz MD at 7:28 EST ,
== END | disposition home or self-care (01) ==
LOC: OPBI 16:29
PROVIDERS: PCP Family Medicine; Referring Provider Family Medicine; Visit Provider Family Medicine
DX: Z12.31 Encounter for screening mammogram for malignant neoplasm of breast (principal)
CPT/HCPCS: 77063; 77067

== ENCOUNTER 2024-07-22 20:58 | Inpatient (IN) | payer SELFPAY ==
[2024-07-22] VITALS (23 sets, daily range): BP systolic 128–171; BP diastolic 83–118; PULSE 57–81; RESP 12–28; TEMP 36.8; O2SAT 95–99; BMI 33.5
--- NOTE | 2024-07-22 21:15 | EKG12_ITS ---
Test Reason : CP Blood Pressure : */* mmHG Vent. Rate : 60 BPM Atrial Rate : 60 BPM P-R Int : 164 ms QRS Dur : 88 ms QT Int : 460 ms P-R-T Axes : 68 58 72 degrees QTcB Int : 460 ms Normal sinus rhythm Nonspecific T wave abnormality Prolonged QT Abnormal ECG Confirmed by Walter Sampson ([id number]), editor managing director TEVIN RODRIGUEZ ([id number]) on 07/23/2024 8:49:22 AM Referred By: Dez Levin Confirmed By: Walter Sampson
--- NOTE | 2024-07-22 21:20 | RAD_ITS ---
EXAM: XR CHEST, 2 VIEWS CLINICAL INDICATION: chest pain TECHNIQUE: Frontal and lateral views of the chest. COMPARISON: 10/04/2012 FINDINGS: LUNGS AND PLEURAL SPACES: No significant abnormality. No consolidation or edema. No pneumothorax. No effusion. HEART: No significant abnormality. Cardiac silhouette not enlarged. MEDIASTINUM: Central airways and mediastinal contour are unremarkable. BONES/JOINTS: Postoperative changes in the cervical spine and degenerative changes elsewhere in the spine and shoulders. No acute fracture. SOFT TISSUES: No significant abnormality. UPPER ABDOMEN: Status post cholecystectomy. RAD/Chest PA and Lateral IMPRESSION: No acute findings in the chest. Electronically Signed: Gilberto Carrillo DO at 21:30 EST ,
[2024-07-22 21:25] LABS: Absolute Lymphocyte Count 3.49 X10^3/uL (0.83-4.51); Basophil# 0.07 X10^3/uL; Basophil% 0.7 % (0-1); Eosinophil# 0.18 X10^3/uL; Eosinophils% 1.7 % (0-5); Hematocrit 43.4 % (37-47); Hemoglobin 14.3 g/dL (12.0-15.0); Lymphocyte # 3.49 X10^3/ul (0.83-4.51); Lymphocyte % 33.4 % (19-41); Mean Corp Hgb Conc 32.9 g/dL (32-36); Mean Corpuscular Hgb 32.2 pg (27.0-32.0); Mean Corpuscular Volume 97.7 fL (81-99); Mean Platelet Vol. 10.4 fl (6.2-12.0); Monocyte# 0.65 X10^3/uL; Monocyte% 6.2 % (0-10); NRBC Flagged by Analyzer 0 % (0-5); Neutrophil # 6.03 X10^3/uL (2.7-7.7); Neutrophil % 57.6 % (47-70); Platelet Count 315 K/mm3 (150-450); RBC Distribution Width CV 14.1 % (11.6-14.6); RBC Distribution Width SD 51.1 fl (35.1-43.9); Red Blood Count 4.44 M/mm3 (4.2-5.4); White Blood Count 10.5 K/mm3 (4.4-11.0)
[2024-07-22] MEDS: 0.9% Normal Saline (1000mL) 1,000 ML 999 ML IV (21:35)
[2024-07-22 21:47] LABS: Anion Gap 6 (5-15); BUN 8 mg/dL (7-18); BUN/Creat Ratio 9.4 RATIO (10-20); Calcium,Total 9.3 mg/dL (8.5-10.1); Chloride 107 mmol/L (98-107); Creatinine, Serum 0.85 mg/dL (0.55-1.02); EST Glomerular Filtration Rate 76 mL/min (>60); Est Glom Filt Rate - Afr Amer 92 mL/min (>60); Glucose 115 mg/dL (74-106); Potassium 3.4 mmol/L (3.5-5.1); Sodium Level 140 mmol/L (136-145); Troponin-I HS (w/2H Reflex) 193 pg/mL (3.0-54.0)
[2024-07-22 21:50] LABS: BNP,B-Type NATRIURETIC PEPTIDE 38.3 pg/mL (0-100)
--- NOTE | 2024-07-22 21:59 | ED.VIS.CHEST ---
HPI History of Present Illness Chief Complaint: Chest Pain Narrative Narrative: Patient is a 49-year-old female with past medical history of hypertension, anxiety, depression, hypercholesterolemia who presents to the emergency department chief complaint of chest pain. Patient states that earlier this evening she was in the shower when she developed right-sided chest pain. She states that has been persistent but will get worse at times. She states that nothing in particular makes this worse or better. Patient denies any travel history denies any history of blood clots. Patient states that she is not compliant with her blood pressure medication she states that most days she forgets to take this. [facility] Medical History Scar tissue (~1995) bladder (~2007) Hypertension Depression Anxiety Home Medications ?Medication ?Instructions ?Recorded ?Last Taken ?Type bisoprolol 5 1 tab PO DAILY 11/25/13 Unknown History mg-hydrochlorothiazide 6.25 mg tablet duloxetine 60 mg capsule,delayed 60 mg PO QDAY 09/21/17 Unknown History release (Cymbalta) atorvastatin 20 mg tablet 20 mg PO QHS 09/14/20 Unknown History Allergy/AdvReac Type Severity Reaction Status Date / Time lactase (From Dairy Aid) Allergy Mild GI upset Verified 07/22/24 21:00 ciprofloxacin (From Cipro) AdvReac Vomiting Verified 07/22/24 21:00 ciprofloxacin HCl (From AdvReac Vomiting Verified 07/22/24 21:00 Cipro) Sulfa (Sulfonamide AdvReac Vomiting Verified 07/22/24 21:00 Antibiotics) Family History Father Heart disease Diabetes Type 2 Hyperlipidemia Hypertension CVA (cerebral vascular accident) S/P triple vessel bypass Mother Thyroid disorder Hypertension Heart murmur Surgical History H/O oral surgery Hx of cholecystectomy (~2004) H/O section Ovarian cyst (~1995) H/O: hysterectomy (~2009) Social History adopted: No household members: spouse, family and children housing: house number of children: 2 current occupational status: employed current occupation: [employer] Smoking Status: Heavy Smoker (>10/day) second hand exposure: Yes alcohol intake: current alcohol intake frequency: holidays/special occasions only substance use type: does not use what type of physical activity do you participate in: walking frequency: 1-2 times per week seatbelt use: always do you feel safe at home: Yes additional social history: Orrie- ROS ROS ED ROS Narrative Constitutional: Denies any fevers, chills, headaches, lightness, dizziness Eyes: Denies change in vision double vision blurry vision Cardiovascular: Complains of chest pain as noted above denies palpitations Respiratory: Denies coughing wheezing shortness of breath Abdomen: Denies abdominal pain nausea vomit diarrhea : Denies any urinary symptoms Neurological: Denies any numbness, weakness, tingling Musculoskeletal: Denies back pain Skin: Denies rashes or lesions EXAM Physical Exam Narrative Exam Narrative: General: Patient lying in bed rest comfortably did not appear to be in acute distress Head: Atraumatic, normocephalic Eyes: PERRL bilateral, EOMI bilateral, no conjunctival injection noted Neck: Soft, supple, trachea midline Cardiovascular: Regular rate and rhythm no murmurs gallops rubs noted Respiratory: Clear to auscultation bilaterally Abdomen: No tenderness palpation, soft Extremities: +5/5 strength noted in the bilateral upper and lower extremities, radial pulses +2/4 in the bilateral upper extremities Neurological: Patient following commands knew that she was at [facility] years 2023 Skin: Warm, dry, intact no rashes or lesions noted Const Vital Signs: 07/22/24 20:59 07/22/24 21:21 07/22/24 22:03 Temperature 98.3 F Temperature Source Oral Pulse Rate 63 60 60 Respiratory Rate 18 16 18 Blood Pressure 156/100 H 137/96 H 134/85 H Blood Pressure Mean 118 109 101 Pulse Ox 98 95 96 Oxygen Delivery Method Room Air Room Air Room Air 07/22/24 22:11 07/22/24 23:02 Temperature Temperature Source Pulse Rate 71 63 Respiratory Rate 18 Blood Pressure 134/85 H 157/96 H Blood Pressure Mean 116 Pulse Ox 96 Oxygen Delivery Method Room Air MDM MDM MDM Narrative Medical decision making narrative: Patient is a 49-year-old female who presents to the emergency department with a chief complaint of chest pain that started approximately 3 hours ago. On the differential diagnose includes Melamin to ACS, NSTEMI, pneumothorax, PE although feel this less likely as her revised [place] score is low risk. Once workup is obtained reviewed she will be reevaluated. Patient CBC reviewed and showed no evidence leukocytosis white blood count normal at 10.5, hemoglobin stable 14.3, plate count was noted be 315. Patient sodium normal at 140, potassium 3.4, creatinine normal at 0.85. Patient's proBNP normal at 30.3, troponin was noted be 193. Patient was given 325 mg of aspirin, sublingual nitroglycerin. D-dimer was added on and was normal at 0.27. Patient's chest x-ray reviewed by myself and radiology showed no acute cardiopulmonary processes. Patient had a repeat EKG performed at 2235 and showed sinus rhythm with a rate of 67 bpm was largely unchanged from the original EKG. Patient delta troponin pending at this point time. Patient case will be signed out to oncoming provider to follow-up on delta troponin and make ultimate disposition. Lab Data Labs: Laboratory Results - last 24 hr 07/22/24 21:15 WBC 10.5 RBC 4.44 Hgb 14.3 Hct 43.4 MCV 97.7 MCH 32.2 H MCHC 32.9 RDW Std Deviation 51.1 H RDW Coeff of Rui 14.1 Plt Count 315 MPV 10.4 Immature Gran % (Auto) 0.400 Neut % (Auto) 57.6 Lymph % (Auto) 33.4 [place] % (Auto) 6.2 Eos % (Auto) 1.7 Baso % (Auto) 0.7 Absolute Neuts (auto) 6.0 Absolute Lymphs (auto) 3.49 Nucleated RBC % 0 D-Dimer Quant (PE/DVT) 0.27 Sodium 140 Potassium 3.4 L Chloride 107 Carbon Dioxide 27.0 Anion Gap 6 BUN 8 Creatinine 0.85 Est GFR (MDRD) Af Amer 92 Est GFR (MDRD) Non-Af 76 BUN/Creatinine Ratio 9.4 L Glucose 115 H Calcium 9.3 Troponin I High Sens 193 H* B-Natriuretic Peptide 38.3 Radiography Diagnostic Testing: Clinical Impression(s) from Imaging Studies Chest X-Ray 07/22/24 21:20 IMPRESSION: No acute findings in the chest. Electronically Signed: Gilberto Carrillo DO at 21:30 EST , Discharge Plan Triage Chief Complaint: Chest Pain ED Provider: Dez Levin Dx/Rx/DC Orders Prescriptions: No Action duloxetine [Cymbalta] 60 mg capsule,delayed release(DR/EC) 60 mg PO QDAY atorvastatin 20 mg tablet 20 mg PO QHS bisoprolol-hydrochlorothiazide 1 TAB tablet 1 tab PO DAILY Primary Care Provider: Fallon Guevara Referrals: Fallon Guevara MD [Primary Care Provider] - Print Language: Australian
[2024-07-22] MEDS: Nitroglycerin SL (ED/IMG/CATH) 0.4 MG TABLET SL (22:11)
[2024-07-22] MEDS: Aspirin 325 MG Tablet PO (22:11)
--- NOTE | 2024-07-22 22:31 | EKG12_ITS ---
Test Reason : DYSRHYTHMIA Blood Pressure : */* mmHG Vent. Rate : 67 BPM Atrial Rate : 67 BPM P-R Int : 158 ms QRS Dur : 82 ms QT Int : 440 ms P-R-T Axes : 62 49 77 degrees QTcB Int : 464 ms Normal sinus rhythm Nonspecific T wave abnormality Abnormal ECG Confirmed by Walter Sampson ([id number]), primer expeditor and drier TEVIN RODRIGUEZ ([id number]) on 07/23/2024 8:49:37 AM Referred By: Dez Levin Confirmed By: Walter Sampson
[2024-07-22 22:56] LABS: D-Dimer Quantitative (DVT/PE) 0.27 FEU/ug/m (0.27-0.49)
[2024-07-22 23:22] LABS: Reflex Troponin-HS? (from REC) Y
--- NOTE | 2024-07-22 23:34 | CT_ITS ---
STUDY: CTA CHEST REASON FOR EXAM: Female, 49 years old. chest pain to back RADIATION DOSAGE (If Supplied By Facility): CTDIvol = ( 13.44 ) mGy, DLP = ( 539.22 ) mGycm TECHNIQUE: The examination was performed with the intravenous administration of IV 100mL Isovue-370. Post-processing of the angiographic images was performed, with multiplanar reformation and 3D reconstruction. Individualized dose optimization techniques were used for this CT. COMPARISON: Prior study dated: Radiograph from 07/22/2024 FINDINGS: PULMONARY ARTERIES: Normal enhancement of the main pulmonary artery and right and left pulmonary arteries. Normal enhancement of the bilateral peripheral pulmonary arteries. There is no demonstrated pulmonary embolism. AORTA: Normal thoracic aorta and visualized great vessels. There is no demonstrated aortic dissection. MEDIASTINUM: Normal heart and pericardium. Prominent pericardial recess tracks along the left aspect of the main pulmonary artery. Mediastinal lymphadenopathy. Normal hilar regions. LUNGS/PLEURA: Normal visualized trachea and bronchi. Mild septal thickening with groundglass opacity. This is greatest in the lower lungs. No dense consolidation. There is a lingular parenchymal nodule which measures 0.4 cm on series 2 image 127. Additional 0.3 cm nodule on image 112 in the lingula. Normal pleura. No pneumothorax. CHEST WALL: Normal chest wall structures. UPPER ABDOMEN: Cholecystectomy. No acute abnormality. OSSEOUS STRUCTURES: No acute or suspicious osseous abnormality. Mild degenerative changes of the spine. CT/CTA Chest W/WO Contrast IMPRESSION: No pulmonary embolism. Mild edema. Pulmonary nodules in the lingula measure up to 0.4 cm. According to the updated 2017 Fleischner Society recommendations, the advised follow-up imaging for solid nodules < 6 mm is: LOW RISK PATIENT: No routine follow-up. HIGH RISK PATIENT: Optional CT at 12 months. Electronically Signed: Beck Damon MD at 0:33 EST ,
[2024-07-22 23:45] LABS: Troponin-I HS 706 pg/mL (3.0-54.0)
[2024-07-23] VITALS (19 sets, daily range): BP systolic 114–168; BP diastolic 71–105; PULSE 60–81; RESP 12–21; TEMP 36.3–36.6; O2SAT 94–98; BMI 33.1; BMI 33.2
--- NOTE | 2024-07-23 00:34 | PCM.HP.STD ---
HPI - General General Date of Admission: 07/23/24 Date of Service: 07/23/24 Chief Complaint: Chest pain HPI Narrative SUMA HURTADO, is a 49 F who presented to [facility] ED on 07/22/2024 with chest pain. Patient states that she developed chest pain earlier this evening while in the shower. On further questioning, she and her were having sex in the shower when she developed chest pain. Pain was right-sided and felt more like a chest pressure. Did not radiate down her arms or up into her neck. The pain persisted so she came into the ED for further evaluation. In the ED BP was elevated to the 150s over 100s, was otherwise hemodynamically stable on room air. CBC and BMP were unremarkable. Initial troponin was 193 and up trended to 706. EKG x 2 showed normal sinus rhythm with no ST changes. CTA chest showed no PE, mild edema but otherwise no acute abnormalities. Patient was discussed with cardiology who recommended giving aspirin 325 mg and a dose of therapeutic Lovenox, and hospitalist was contacted for admission. I saw the patient at bedside in the ED, and mother were present. Patient was anxious appearing but otherwise sitting up comfortably in bed in no acute distress. She rated her chest pain at a 3-4 out of 10 currently. She noted that she has not taken her atorvastatin for several months. Notes that she has generalized muscle aches and was unsure if the statin was making these worse. She is a cigarette smoker, smokes about 1 pack/day. Denies alcohol use. Does report compliance with her home blood pressure medication. She notes that about 1 month ago when getting into the car she had another episode of chest pain like this. The pain slowly subsided with rest so she did not come in for further evaluation. She currently denies any shortness of breath. Denies any fevers or chills. No other acute concerns at this time. COUNT INCLUDES THE [facility] Medical History (Updated 07/23/24 @ 00:[address] Sorin Farah, DO) Scar tissue (~1995) bladder (~2007) Hypertension Depression Anxiety Home Medications ?Medication ?Instructions ?Recorded ?Last Taken ?Type bisoprolol 5 1 tab PO DAILY 11/25/13 Unknown History mg-hydrochlorothiazide 6.25 mg tablet duloxetine 60 mg capsule,delayed 60 mg PO QDAY 03/08/18 Unknown History release (Cymbalta) atorvastatin 20 mg tablet 20 mg PO QHS 09/14/20 Unknown History Allergy/AdvReac Type Severity Reaction Status Date / Time lactase (From Dairy Aid) Allergy Mild GI upset Verified 07/22/24 21:00 ciprofloxacin (From Cipro) AdvReac Vomiting Verified 07/22/24 21:00 ciprofloxacin HCl (From AdvReac Vomiting Verified 07/22/24 21:00 Cipro) Sulfa (Sulfonamide AdvReac Vomiting Verified 07/22/24 21:00 Antibiotics) Family History Father Heart disease Diabetes Type 2 Hyperlipidemia Hypertension CVA (cerebral vascular accident) S/P triple vessel bypass Mother Thyroid disorder Hypertension Heart murmur Surgical History H/O oral surgery Hx of cholecystectomy (~2004) H/O section Ovarian cyst (~1995) H/O: hysterectomy (~2009) Social History adopted: No household members: spouse, family and children housing: house number of children: 2 current occupational status: employed current occupation: [employer] Smoking Status: Heavy Smoker (>10/day) second hand exposure: Yes alcohol intake: current alcohol intake frequency: holidays/special occasions only substance use type: does not use what type of physical activity do you participate in: walking frequency: 1-2 times per week seatbelt use: always do you feel safe at home: Yes additional social history: Orrie- ROS Constitutional Constitutional: Denies chills, fatigue, fever(s) or weakness Eyes Eyes: Denies change in vision Cardiovascular Cardiovascular: Reports chest pain; Denies dyspnea on exertion, edema, lightheadedness, palpitations, rapid heart rate or syncope Respiratory/Chest Respiratory/Chest: Denies cough, shortness of breath at rest or shortness of breath with exertion Gastrointestinal Gastrointestinal: Denies abdominal pain Genitourinary Genitourinary: Denies dysuria Musculoskeletal Musculoskeletal: Denies arthralgias or myalgias Vital Signs Vital Signs Vital Signs: 07/22/24 20:59 07/22/24 21:21 07/22/24 22:03 Temperature 98.3 F Temperature Source Oral Pulse Rate 63 60 60 Respiratory Rate 18 16 18 Blood Pressure 156/100 H 137/96 H 134/85 H Blood Pressure Mean 118 109 101 Pulse Ox 98 95 96 Oxygen Delivery Method Room Air Room Air Room Air 07/22/24 22:11 07/22/24 23:02 Temperature Temperature Source Pulse Rate 71 63 Respiratory Rate 18 Blood Pressure 134/85 H 157/96 H Blood Pressure Mean 116 Pulse Ox 96 Oxygen Delivery Method Room Air Weight Weight: 91.6 kg Body Mass Index (BMI) 33.5 Physical Exam Const alert, oriented x3 and no apparent distress Constitutional Narrative: Middle-age female, class I obesity, mildly anxious appearing but otherwise sitting up comfortably in bed, conversing normally, in no acute distress. General Appearance: cooperative and comfortable HEENT normocephalic, head/scalp atraumatic, hearing grossly normal bilaterally, nasal mucous membranes and turbinates normal and moist oral mucous membranes Eyes PERRL, EOMs intact bilaterally and conjunctivae normal Neck full ROM Chest inspection of chest normal Resp normal respiratory effort, normal air movement, no use of accessory muscles and clear to auscultation bilaterally Cardio regular rate, regular rhythm, no murmurs and peripheral pulses 2+ throughout GI normal to inspection, nondistended, normoactive bowel sounds, soft to palpation, non-tender and non-distended Back/Spine normal ROM Extremity normal to inspection, full ROM and no pedal edema Skin no rashes or lesions noted Neuro moves all extremities and no focal motor deficits Psych mental status grossly normal Mood & Affect: anxious Results Lab / Micro Data 07/22/24 21:15 07/22/24 21:15 Labs: Laboratory Results - last 24 hr 07/22/24 21:15: WBC 10.5, RBC 4.44, Hgb 14.3, Hct 43.4, MCV 97.7, MCH 32.2 H, MCHC 32.9, RDW Std Deviation 51.1 H, RDW Coeff of Rui 14.1, Plt Count 315, MPV 10.4, Immature Gran % (Auto) 0.400, Neut % (Auto) 57.6, Lymph % (Auto) 33.4, [place] % (Auto) 6.2, Eos % (Auto) 1.7, Baso % (Auto) 0.7, Absolute Neuts (auto) 6.0, Absolute Lymphs (auto) 3.49, Nucleated RBC % 0, D-Dimer Quant (PE/DVT) 0.27, Sodium 140, Potassium 3.4 L, Chloride 107, Carbon Dioxide 27.0, Anion Gap 6, BUN 8, Creatinine 0.85, Est GFR (MDRD) Af Amer 92, Est GFR (MDRD) Non-Af 76, BUN/Creatinine Ratio 9.4 L, Glucose 115 H, Calcium 9.3, Troponin I High Sens 193 H*, B-Natriuretic Peptide 38.3 07/22/24 23:10: Troponin I High Sens 706 H* Imaging Radiology Impression Chest X-Ray 07/22/24 21:20 IMPRESSION: No acute findings in the chest. Electronically Signed: Gilberto Carrillo DO at 21:30 EST , Chest CTA 07/22/24 23:34 IMPRESSION: No pulmonary embolism. Mild edema. Pulmonary nodules in the lingula measure up to 0.4 cm. According to the updated 2017 Fleischner Society recommendations, the advised follow-up imaging for solid nodules < 6 mm is: LOW RISK PATIENT: No routine follow-up. HIGH RISK PATIENT: Optional CT at 12 months. Electronically Signed: Beck Damon MD at 0:33 EST , Assessment & Plan Assessment/Plan (1) Non-ST elevation [place] (NSTEMI): PLAN: Plan Patient is a 49-year-old [facility] with chest pain. 1. NSTEMI ? Admit under inpatient status to PCU. Cardiology consulted. Seems most consistent with type I NSTEMI given presentation and risk factors as noted below. Will keep n.p.o. with likely plan for left heart cath later today. Lipid panel, A1c and TSH ordered. Echo ordered. Will start atorvastatin 80 mg at night for now. Will also start Coreg and lisinopril. Appreciate further cardiology recommendations. 2. Hypertension ? On home bisoprolol?hydrochlorothiazide. Hypertensive to the 150s to 160s in the ED. Will start Coreg and lisinopril as noted above for now. 3. Hyperlipidemia ? Last lipid panel in September 2022 showed total cholesterol 281, LDL not calculable, HDL 31, triglycerides 614. Patient has not been adherent to home statin for several months due to perceived side effect of muscle aches. Repeat lipid panel ordered as above. Further management as above. 4. Anxiety/depression ? Acutely anxious on admit secondary to NSTEMI, otherwise states symptoms have been well-controlled recently. Continue home duloxetine. 5. Tobacco use disorder ? Smokes about 1 pack/day currently. Denied need for nicotine replacement therapy at this time. 6. Class I obesity ? BMI 33 on admit. Encouraged lifestyle modifications. Complicates hospital course, care and prognosis. DVT prophylaxis: Not indicated, on therapeutic Lovenox CODE STATUS: Full code, verified Expected disposition: Home, TBD Total clinical time spent by myself addressing the patient's medical issues, reviewing all the data, and collaborating with patient's care team: 55 minutes. Charges/Coding Visit Charges Inpatient E&M: 93656 Init Hosp L2
[2024-07-23] MEDS: Enoxaparin 100 MG/ML Syringe 90 MG SC (00:45)
--- NOTE | 2024-07-23 01:19 | ECHOCS_ITS ---
Reason For Study: Chest Pain Procedure This was a 2D Doppler, Color Flow transthoracic echocardiogram. Contrast injection was performed. Exam performed portable in ICU/CCU. Left Ventricle Normal LV size. The left ventricular ejection fraction is 40 %. Moderate segmental systolic dysfunction (see wall motion). [place] : Akinetic. There are regional wall motion abnormalities as specified. Mid-Anterior : Akinetic. Mid-anteroseptal : Akinetic. Mid-Lateral : Hypokinetic. The rest of the wall segments are normal. Right Ventricle Normal RV size. Normal systolic function. Atria Normal left atrium. Normal right atrium. Mitral Valve Normal mitral valve. Tricuspid Valve Normal tricuspid valve. Aortic Valve Trisinus/trileaflet aortic valve. Pulmonic Valve Normal pulmonic valve. Great Vessels Normal aortic root. The pulmonary artery is normal size. Normal inferior vena cava. Pericardium/Pleural No pericardial effusion. Medication Diluted definity 2ml given slow IV push to enhance endocardial definition. MMode/2D Measurements & Calculations LVIDd: 5.0 cm IVSd: 1.1 cm LAV(MOD-bp): 31.0 ml LVIDs: 3.5 cm LVPWd: 1.1 cm RVDd: 3.0 cm FS: 29.0 % LAV(MOD-bp) Indexed: 15.7 ml/m2 LAV(MOD-sp2): 37.2 ml LAV(MOD-sp4): 24.0 ml SV(MOD-sp4): 52.7 ml SV(sp4-el): 54.8 ml LVAd ap4: 33.0 cm2 LVLd ap4: 8.0 cm SI(MOD-sp4): 26.7 ml/m2 EDV(MOD-sp4): 112.8 ml EDV(sp4-el): 115.8 ml LVAs ap4: 22.6 cm2 LVLs ap4: 7.1 cm ESV(MOD-sp4): 60.2 ml ESV(sp4-el): 61.0 ml EF(MOD-sp4): 46.7 % EF(sp4-el): 47.3 % LA dimension(2D): 3.7 cm LA A4 area: 11.7 cm2 RA A4 area: 10.2 cm2 TAPSE: 1.7 cm Time Measurements MV dec time: 0.16 sec Doppler Measurements & Calculations MV E max paxton: 75.6 cm/sec Lat Peak E' Paxton: 11.1 cm/sec Med Peak E' Paxton: 9.2 cm/sec MV A max paxton: 75.5 cm/sec E/E' lat: 6.8 E/E' med: 8.3 MV E/A: 1.0 MV V2 max: 92.6 cm/sec MV dec slope: 476.0 cm/sec2 Ao V2 max: 124.4 cm/sec MV max P.4 mmHg Ao max P.2 mmHg MV V2 mean: 57.2 cm/sec Ao V2 mean: 84.0 cm/sec MV mean P.5 mmHg Ao mean P.2 mmHg MV V2 VTI: 24.6 cm Ao V2 VTI: 27.3 cm AV (velocity ratio): 0.79 LV V1 max: 95.9 cm/sec PA V2 max: 96.1 cm/sec LV V1 max P.7 mmHg PA V2 mean: 66.9 cm/sec LV V1 mean P.1 mmHg LV V1 mean: 67.8 cm/sec LV V1 VTI: 21.5 cm ECHO/Echo Complete W/ Contrast Interpretation Summary The left ventricular ejection fraction is 40 %. Moderate segmental systolic dysfunction (see wall motion). Normal LV size. Contrast injection was performed. Ordering Physician: Miah Emanuel Referring Physician: Dez Levin Performed By: Nakul Angel RCS
[2024-07-23 01:44] LABS: Hemoglobin A1c 5.9 % (3.8-5.6)
[2024-07-23 01:49] LABS: Magnesium 1.9 mg/dL (1.6-2.6); Phosphorus 1.9 mg/dL (2.5-4.9)
[2024-07-23 03:54] LABS: Hematocrit 38.9 % (37-47); Hemoglobin 13.1 g/dL (12.0-15.0); Mean Corp Hgb Conc 33.7 g/dL (32-36); Mean Corpuscular Hgb 32.8 pg (27.0-32.0); Mean Corpuscular Volume 97.3 fL (81-99); Mean Platelet Vol. 10.6 fl (6.2-12.0); Platelet Count 284 K/mm3 (150-450); RBC Distribution Width CV 14.3 % (11.6-14.6); RBC Distribution Width SD 51.2 fl (35.1-43.9); White Blood Count 10.5 K/mm3 (4.4-11.0)
[2024-07-23 04:11] LABS: Anion Gap 3 (5-15); BUN 8 mg/dL (7-18); BUN/Creat Ratio 12.3 RATIO (10-20); Calcium,Total 8.9 mg/dL (8.5-10.1); Chloride 110 mmol/L (98-107); Creatinine, Serum 0.65 mg/dL (0.55-1.02); EST Glomerular Filtration Rate 103 mL/min (>60); Est Glom Filt Rate - Afr Amer 125 mL/min (>60); Estimated Creatinine Clearance 118.91 ml/min; Glucose 110 mg/dL (74-106); Potassium 3.9 mmol/L (3.5-5.1); Sodium Level 140 mmol/L (136-145)
[2024-07-23 04:59] LABS: Troponin-I HS 970 pg/mL (3.0-54.0)
[2024-07-23 07:59] LABS: Cholesterol 279 mg/dL (200); High Density Lipoprotein 32 mg/dL; Triglycerides 463 mg/dL
--- NOTE | 2024-07-23 07:59 | CON.PCM.CA_ITS ---
Assessment & Plan Assessment/Plan (1) Non-ST elevation [place] (NSTEMI): PLAN: Patient has minor EKG changes with T wave inversions in 1 and aVL that did not evolve. Her troponins are positive at 193 and the delta troponin is 706. She has significant risk factor profile with the family history, tobacco use, hyperlipidemia and hypertension. Her hyperlipidemia is not treated. I would recommend the patient undergo a left heart catheterization the procedure risk/benefit and alternatives were explained to the patient in detail she voiced understanding and agrees to proceed. This will be done this morning. The patient was instructed remain n.p.o. except for meds. Lovenox will be held this morning. (2) Hypertension: QUALIFIERS: Hypertension type: primary hypertension Qualified Code(s): I10 - Essential (primary) hypertension PLAN: The patient is on bisoprolol/hydrochlorothiazide in her home environment. Blood pressure was elevated when she originally presented with a chest pain in the emergency department. It is come under better control with the addition of carvedilol 6.25 mg twice daily. She is also on lisinopril 10 mg daily that was both were started here in the hospital. I would recommend these medications to be continued as they seem to be better controlling her hypertension. (3) Hyperlipidemia: QUALIFIERS: Hyperlipidemia type: pure hypercholesterolemia Q ualified Code(s): E78.00 - Pure hypercholesterolemia, unspecified PLAN: The patient has been intolerant of statin therapy due to muscle aches according to her report. She stopped her medical therapy several months ago. She was reinstituted on atorvastatin on admission at 80 mg daily. In the ambulatory setting she may be better served with rosuvastatin as it may have a less likelihood of causing myalgias. (4) Nicotine dependence: QUALIFIERS: Nicotine product type: cigarettes Substance use status: uncomplicated Qualified Code(s): F17.210 - Nicotine dependence, cigarettes, uncomplicated PLAN: I did discuss smoking cessation with her in detail. PLAN: Plan 1. Will proceed with left heart catheterization by Dr. Davila this morning. 2. Further recommendations pending the outcome of the cath. HPI Consult Data Date of Consult: 07/23/24 HPI Narrative Reason for Consultation: Chest pain and non-STEMI HPI Narrative: SUMA HURTADO, is a 49 F who presents with episode of chest discomfort started approximately 6 PM when she was in the shower. She came to the emergency department her first ECG at 2100 hrs. showed a normal sinus rhythm and nonspecific T wave changes. Initial troponin was 193. Delta troponin was 706. The patient did report the chest discomfort was right-sided and radiated into her back. A CTA was performed which showed no evidence of dissection the patient does have a history of hypertension. There was no evidence of PE and her D-dimer was negative. The patient has a family history of early coronary disease in her dad she is hypertensive on therapy she is hyperlipidemic not on therapy and she is a 1 pack-a-day smoker. She is not diabetic. A serial EKG done at 2235 hrs. did not show any evolution of EKG changes. There was still nonspecific T wave changes in the lateral leads. The patient's chest discomfort improved but she continues to have some residual achiness in her right side of her chest. The patient had a previous episode when she was getting in and out of her car several weeks ago that lasted a few minutes and resolved spontaneously. The patient carries a history of anxiety and depression. The patient denies any PND orthopnea denies any lower extremity edema. She is active in her home environment. She denies any syncope or near syncope. FORMERLY [facility], [facility] Medical History (Updated 07/23/24 @ 08:[address] Walter Sampson MD) Scar tissue (~1995) bladder (~2007) Hypertension Depression Anxiety Home Medications ?Medication ?Instructions ?Recorded ?Last Taken ?Type bisoprolol 5 1 tab PO DAILY 11/25/13 Unknown History mg-hydrochlorothiazide 6.25 mg tablet duloxetine 60 mg capsule,delayed 60 mg PO QDAY 09/21/17 Unknown History release (Cymbalta) atorvastatin 20 mg tablet 20 mg PO QHS 09/14/20 Unknown History Allergy/AdvReac Type Severity Reaction Status Date / Time lactase (From [employer]) Allergy Mild GI upset Verified 07/22/24 21:00 ciprofloxacin (From Cipro) AdvReac Vomiting Verified 07/22/24 21:00 ciprofloxacin HCl (From AdvReac Vomiting Verified 07/22/24 21:00 Cipro) Sulfa (Sulfonamide AdvReac Vomiting Verified 07/22/24 21:00 Antibiotics) Family History Father Heart disease Diabetes Type 2 Hyperlipidemia Hypertension CVA (cerebral vascular accident) S/P triple vessel bypass Mother Thyroid disorder Hypertension Heart murmur Surgical History H/O oral surgery Hx of cholecystectomy (~2004) H/O section Ovarian cyst (~1995) H/O: hysterectomy (~2009) Social History adopted: No household members: spouse, family and children housing: house number of children: 2 current occupational status: employed current occupation: [employer] Smoking Status: Heavy Smoker (>10/day) second hand exposure: Yes alcohol intake: current alcohol intake frequency: holidays/special occasions only substance use type: does not use what type of physical activity do you participate in: walking frequency: 1-2 times per week seatbelt use: always do you feel safe at home: Yes additional social history: Orrie- ROS Constitutional Constitutional: Reports as per HPI Eyes Eyes: Reports as per HPI ENT HEENT: Reports as per HPI Cardiovascular Cardiovascular: Reports as per HPI Respiratory/Chest Respiratory/Chest: Reports as per HPI Gastrointestinal Gastrointestinal: Reports systems reviewed and no addt'l complaints, except as documented Genitourinary Genitourinary: Reports systems reviewed and no addt'l complaints, except as documented Musculoskeletal Musculoskeletal: Reports systems reviewed and no addt'l complaints, except as documented Neurologic Neurologic: Reports systems reviewed and no addt'l complaints, except as documented Psychiatric Psychiatric: Reports as per HPI Endocrine Endocrinology: Reports as per HPI Hematologic/Lymphatic Hematologic/Lymphatic: Reports systems reviewed and no addt'l complaints, except as documented Allergic/Immunologic Allergic/Immunologic: Reports systems reviewed and no addt'l complaints, except as documented Physical Exam Const alert, oriented x3 and no apparent distress HEENT normocephalic Eyes EOMs intact bilaterally Neck no JVD and no carotid bruits Chest inspection of chest normal Resp normal respiratory effort and clear to auscultation bilaterally Cardio regular rate, regular rhythm, S1 normal heart sound, S2 normal heart sound, no murmurs, no rub and no gallops Peripheral Pulses: radial pulses present bilateral 2+ GI normal to inspection, nondistended, normoactive bowel sounds Extremity no pedal edema Neuro Neuro Narrative: Alert and oriented x 3 Psych mental status grossly normal Risk Stratification Risk Stratification Applicable: Yes Age >/= 65: No >/= 3 CAD Risk Factors (HTN, HLD, DM, family hx of CAD, or current smoker): Yes Aspirin Use in the Past 7 Days: No Severe Angina (>/= episodes in 24 hours): Yes EKG ST Changes >/= 0.5mm: No Positive Cardiac Marker: Yes DMITRI Risk Stratification Score: 3 DMITRI % Risk: 13% Risk Charges/Coding Visit Charges Inpatient E&M: 26016 Init Hosp L3 Objective Data Vital Signs: Vital Signs Temp Pulse Resp BP Pulse Ox O2 Del Method 98 F 60 17 114/71 98 Room Air 07/23/24 05:00 07/23/24 05:00 07/23/24 05:00 07/23/24 05:00 07/23/24 05:00 07/23/24 05:00 Oxygen Delivery Method Room Air Weight: 199 lb 8.293 oz Body Mass Index (BMI) 33.2 Intake & Output: Intake and Output for Last 24 Hours 07/21/24 07/22/24 07/23/24 23:59 23:59 23:59 Intake Total 1000 / 1000 Balance 1000 / 1000 Lab / Micro Data Attestation: I reviewed the patient's lab results. 07/23/24 03:44 07/23/24 03:44 Labs: Laboratory Results - last 24 hr 07/22/24 21:15: WBC 10.5, RBC 4.44, Hgb 14.3, Hct 43.4, MCV 97.7, MCH 32.2 H, MCHC 32.9, RDW Std Deviation 51.1 H, RDW Coeff of Rui 14.1, Plt Count 315, MPV 10.4, Immature Gran % (Auto) 0.400, Neut % (Auto) 57.6, Lymph % (Auto) 33.4, [place] % (Auto) 6.2, Eos % (Auto) 1.7, Baso % (Auto) 0.7, Absolute Neuts (auto) 6.0, Absolute Lymphs (auto) 3.49, Nucleated RBC % 0, D-Dimer Quant (PE/DVT) 0.27, Sodium 140, Potassium 3.4 L, Chloride 107, Carbon Dioxide 27.0, Anion Gap 6, BUN 8, Creatinine 0.85, Est GFR (MDRD) Af Amer 92, Est GFR (MDRD) Non-Af 76, BUN/Creatinine Ratio 9.4 L, Glucose 115 H, Hemoglobin A1c 5.9 H, Calcium 9.3, T roponin I High Sens 193 H*, B-Natriuretic Peptide 38.3 07/22/24 23:10: Phosphorus 1.9 L, Magnesium 1.9, Troponin I High Sens 706 H*, TSH 1.450 07/23/24 03:44: WBC 10.5, RBC 4.00 L, Hgb 13.1, Hct 38.9, MCV 97.3, MCH 32.8 H, MCHC 33.7, RDW Std Deviation 51.2 H, RDW Coeff of Rui 14.3, Plt Count 284, MPV 10.6, Sodium 140, Potassium 3.9, Chloride 110 H, Carbon Dioxide 27.0, Anion Gap 3 L, BUN 8, Creatinine 0.65, Estim Creat Clear Calc 118.91, Est GFR (MDRD) Af Amer 125, Est GFR (MDRD) Non-Af 103, BUN/Creatinine Ratio 12.3, Glucose 110 H, Calcium 8.9, Troponin I High Sens 970 H* 07/23/24 07:32: Triglycerides 463 H, Cholesterol 279 H, LDL Cholesterol TNP, VLDL Cholesterol TNP, HDL Cholesterol 32 L Cardiology Labs/Tests 07/22/24 21:15: WBC 10.5, RBC 4.44, Hgb 14.3, Hct 43.4, MCV 97.7, MCH 32.2 H, MCHC 32.9, Plt Count 315, MPV 10.4, Immature Gran % (Auto) 0.400, Neut % (Auto) 57.6, Lymph % (Auto) 33.4, [place]hen[place] % (Auto) 6.2, Eos % (Auto) 1.7, Baso % (Auto) 0.7, Absolute Neuts (auto) 6.0, Nucleated RBC % 0, D-Dimer Quant (PE/DVT) 0.27, Sodium 140, Potassium 3.4 L, Chloride 107, Carbon Dioxide 27.0, Anion Gap 6, BUN 8, Creatinine 0.85, Est GFR (MDRD) Af Amer 92, Est GFR (MDRD) Non-Af 76, B UN/Creatinine Ratio 9.4 L, Glucose 115 H, Hemoglobin A1c 5.9 H, Calcium 9.3, B- Natriuretic Peptide 38.3 07/22/24 23:10: Phosphorus 1.9 L, Magnesium 1.9 07/23/24 03:44: WBC 10.5, RBC 4.00 L, Hgb 13.1, Hct 38.9, MCV 97.3, MCH 32.8 H, MCHC 33.7, Plt Count 284, MPV 10.6, Sodium 140, Potassium 3.9, Chloride 110 H, Carbon Dioxide 27.0, Anion Gap 3 L, BUN 8, Creatinine 0.65, Est GFR (MDRD) Af Amer 125, Est GFR (MDRD) Non-Af 103, BUN/Creatinine Ratio 12.3, Glucose 110 H, Calcium 8.9 07/23/24 07:32: Triglycerides 463 H, Cholesterol 279 H, LDL Cholesterol TNP, VLDL Cholesterol TNP, HDL Cholesterol 32 L Rhythm: EKG: ECHO: Stress Test: Cardiac Cath: PCI: CT Surgery: Holter monitor: EPS: PPM: CXR: Chest CT Scan: Radiography Diagnostic Testing: Radiology Impression Chest X-Ray 07/22/24 21:20 IMPRESSION: No acute findings in the chest. Electronically Signed: Gilberto Carrillo DO at 21:30 EST , Chest CTA 07/22/24 23:34 IMPRESSION: No pulmonary embolism. Mild edema. Pulmonary nodules in the lingula measure up to 0.4 cm. According to the updated 2017 Fleischner Society recommendations, the advised follow-up imaging for solid nodules < 6 mm is: LOW RISK PATIENT: No routine follow-up. HIGH RISK PATIENT: Optional CT at 12 months. Electronically Signed: Beck Damon MD at 0:33 EST , EKG Initial EKG: Attestation: I personally reviewed and interpreted this EKG as follows: (Normal sinus rhythm at 60 bpm with nonspecific T wave inversions in 1 and aVL. QT was prolonged at 460 ms.)
[2024-07-23] MEDS: Carvedilol 6.25 MG Tablet PO (08:48)
[2024-07-23] MEDS: DULoxetine Hcl 60 MG Capsule PO (08:49)
--- NOTE | 2024-07-23 09:52 | CASEMGMT ---
Social Work SW met w/pt, as pt is listed as self pay. Pt does go to [facility] for her medical care, as she works there and it is free. Pt also met w/Carola from [employer] this morning and completed a Medicaid application. SW gave pt some additional resources, including information on [facility] assistance, [employer], prescription assistance programs and [employer]. SW remains available should additional resources be needed. DENEZL Minor
--- NOTE | 2024-07-23 10:09 | CASEMGMT ---
Addendum entered by Contreras Freed 07/23/24 12:44: Per the medical team, the pt is requiring transfer to a tertiary post cardiac catheterization. The pt is SP and can transfer to facility of choice. The pt has applied for [facility], per Carola. Original Note: TAJ GALINDO Assessment Face to Face with patient for initial transition planning/care coordination assessment. TAJ GALINDO introduced self and role at [facility], pt voices understanding. Pt is A&Ox4 and is resting comfortably in bed and is calm. Pt and mother at bedside. Care providers, pharmacy, and demographics verified. Admitting dx: NSTEMI LACE Strata: 1 PCP: Fallon Guevara Specialists: Denies Preferred Pharmacy: [facility] during this stay. [facility] otherwise Insurance: Pt is SP. Carola has seen the pt and has applied the pt for AMADEO Prescription Benefit: None at this time. CM to follow. LNOK: Edmund Freed (H), Katerina (Mother) Living Arrangements: Pt lives with her , 19 y/o son, and 16 y/o daughter in a 2 story home with one step to enter ADLs/IADLs: Ind Transportation: Self, DME: BP Machine, pulse ox HHC/SNF: Denies Hx or needs. Pt has been to in the past for OP PT Pt?s goal: Return home Plan: Home, follow for Rx costs and new blood thinning Rx. 6-Click is 24. Pt states that she feels safe returning home with her family once she is medically ready and denies further needs at home. Pt denies the need for OP therapy. Pt is scheduled for a cardiac catheter today. Pt denies further questions or concerns at this time. CM to follow. Sammie Freed RN, CM
--- NOTE | 2024-07-23 11:54 | CL.D_ITS ---
Patient Name: SUMA HURTADO Study Date: 07/23/2024 Performing: Roe Davila MD Ht: 65 inches 165.1 cm : 1975 Wt: 199.52 lbs 90.5 kg Age: 49 Gender: female BSA: 1.98 PROCEDURE(S) PERFORMED [id number])LHC/COR/LV CLINICAL PROFILE AND INDICATIONS Indications: ACS <= 24 hrs Heart Failure: None Stress/Imaging Stress/Image Study Performed: No CAD Presentations: Non-STEMI. 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 Reduced ejection fraction RECOMMENDATIONS Consider surgical opinion prior to considering multivessel PCI DESCRIPTION OF PROCEDURE The patient arrived to the procedure lab. The risks and benefits of the procedure as well as a full description of our services here and current unavailability of surgical backup were fully explained to the patient and/or their significant other prior to the catheterization. The Timeout was completed, verifying the correct patient and procedure. The patient's procedural site was prepped and draped in the usual fashion. Local anesthetic was given subcutaneously to right radial region with Lidocaine 2%. Using a modified Seldinger technique, arterial access was obtained via the right radial artery, a 6Fr sheath was inserted. nisa Right Coronary Artery selective angiography was then performed in multiple views using a 5 Fr. 4.0 [place] catheter. Left Coronary Artery selective angiography was performed in multiple views using a 5 Fr. 4.0 [place] catheter. CORONARY ANGIOGRAPHY DOMINANCE: Right Dominant LEFT HEART ASSESSMENT Left Ventricular Ejection Fraction: by Echo 40 % Anterior Hypokinesis - Severe. Apical Hypokinesis - Severe Depressed Left Ventricular systolic function LEFT MAIN: Angiographically normal LEFT ANTERIOR DESCENDING ARTERY: Medium size vessel with proximal 95% stenosis encompassing the origin of a septal ammunition supervisor 1 and 2 and just prior to a diagonal branch. The mid to distal left anterior descending artery also has a mildly calcified 60 to 70% stenotic lesion. CIRCUMFLEX ARTERY: Nondominant but medium size vessel with a proximal 80% stenosis prior to the takeoff of an obtuse marginal branch and a large AV groove branch. The vessel appears diseased up to the ostium. RIGHT CORONARY ARTERY: Dominant right coronary artery with proximal 70% eccentric stenosis and diffuse disease noted including the posterolateral vessel and posterior descending artery COMPLICATIONS No Complications PROCEDURE MEDICATIONS Versed 1 mg IV Fentanyl 50 mcg IV Versed 1 mg IV Oxygen: 2 L/min via nasal cannula Baby Aspirin (81mg) 1 Tabs PO @ 07/23/2024 11:26:20 Heparin given IA 07/23/2024 11:31:40 Verapamil 2.5mg, Ntg 200mcgs, 2000 units of Heparin given IA 07/23/2024 11:31:40 SUMMARY OF HEMODYNAMIC DATA Time AIR REST ECG 11:15:20 AO 140/86 (110) SA 11:32:39 Signed By Roe Davila MD On 07/23/2024 11:52:54 Roe Davila MD
--- NOTE | 2024-07-23 13:27 | PCM.DC.SUM ---
Providers Date of Admission: 07/23/24 Primary Care Physician: Dr. Fallon Guevara MD Consultations 07/23/24 01:19 Consult: Cardiology Routine Consulting Provider: Walter Sampson Reason for Consult: NSTEMI EMERGENT Consult: No MD Notified: Yes Date Notified: 07/23/24 Time Notified: 07:24 Method of Notification: Text Reason For Visit: NSTEMI Diagnosis Discharge Diagnosis (1) Non-ST elevation [place] (NSTEMI): Status: Acute Code(s): I21.4 - Non-ST elevation (NSTEMI) myocardial infarction (2) Hypertension: Status: Chronic Code(s): I10 - Essential (primary) hypertension Qualifiers: Hypertension type: primary hypertension Qualified Code(s): I10 - Essential (primary) hypertension (3) Hyperlipidemia: Status: Acute Code(s): E78.5 - Hyperlipidemia, unspecified Qualifiers: Hyperlipidemia type: pure hypercholesterolemia Qualified Code(s): E78.00 - Pure hypercholesterolemia, unspecified (4) Nicotine dependence: Status: Acute Code(s): F17.200 - Nicotine dependence, unspecified, uncomplicated Qualifiers: Nicotine product type: cigarettes Substance use status: uncomplicated Qualified Code(s): F17.210 - Nicotine dependence, cigarettes, uncomplicated Medications at Discharge Home Medications bisoprolol 5 mg-hydrochlorothiazide 6.25 mg tablet 1 tab PO DAILY 11/25/13 duloxetine 60 mg capsule,delayed release (Cymbalta) 60 mg PO QDAY 09/21/17 atorvastatin 20 mg tablet 20 mg PO QHS 09/14/20 Weight / BMI Weight Weight: 199 lb 8.293 oz Body Mass Index (BMI) 33.2 ABG / Lab / Microbiology Data 07/23/24 03:44 07/23/24 03:44 Laboratory: Laboratory Results - last 24 hr 07/22/24 21:15: WBC 10.5, RBC 4.44, Hgb 14.3, Hct 43.4, MCV 97.7, MCH 32.2 H, MCHC 32.9, RDW Std Deviation 51.1 H, RDW Coeff of Rui 14.1, Plt Count 315, MPV 10.4, Immature Gran % (Auto) 0.400, Neut % (Auto) 57.6, Lymph % (Auto) 33.4, [place] % (Auto) 6.2, Eos % (Auto) 1.7, Baso % (Auto) 0.7, Absolute Neuts (auto) 6.0, Absolute Lymphs (auto) 3.49, Nucleated RBC % 0, D-Dimer Quant (PE/DVT) 0.27, Sodium 140, Potassium 3.4 L, Chloride 107, Carbon Dioxide 27.0, Anion Gap 6, BUN 8, Creatinine 0.85, Est GFR (MDRD) Af Amer 92, Est GFR (MDRD) Non-Af 76, BUN/Creatinine Ratio 9.4 L, Glucose 115 H, Hemoglobin A1c 5.9 H, Calcium 9.3, Troponin I High Sens 193 H*, B-Natriuretic Peptide 38.3 07/22/24 23:10: Phosphorus 1.9 L, Magnesium 1.9, Troponin I High Sens 706 H*, TSH 1.450 07/23/24 03:44: WBC 10.5, RBC 4.00 L, Hgb 13.1, Hct 38.9, MCV 97.3, MCH 32.8 H, MCHC 33.7, RDW Std Deviation 51.2 H, RDW Coeff of Rui 14.3, Plt Count 284, MPV 10.6, Sodium 140, Potassium 3.9, Chloride 110 H, Carbon Dioxide 27.0, Anion Gap 3 L, BUN 8, Creatinine 0.65, Estim Creat Clear Calc 118.91, Est GFR (MDRD) Af Amer 125, Est GFR (MDRD) Non-Af 103, BUN/Creatinine Ratio 12.3, Glucose 110 H, Calcium 8.9, Troponin I High Sens 970 H* 07/23/24 07:32: Triglycerides 463 H, Cholesterol 279 H, LDL Cholesterol TNP, VLDL Cholesterol TNP, HDL Cholesterol 32 L Radiography Diagnostic Testing: Radiology Impression Chest X-Ray 07/22/24 21:20 IMPRESSION: No acute findings in the chest. Electronically Signed: Gilberto Carrillo DO at 21:30 EST , Chest CTA 07/22/24 23:34 IMPRESSION: No pulmonary embolism. Mild edema. Pulmonary nodules in the lingula measure up to 0.4 cm. According to the updated 2017 Fleischner Society recommendations, the advised follow-up imaging for solid nodules < 6 mm is: LOW RISK PATIENT: No routine follow-up. HIGH RISK PATIENT: Optional CT at 12 months. Electronically Signed: Beck Damon MD at 0:33 EST , Echocardiogram 07/23/24 01:19 Interpretation Summary The left ventricular ejection fraction is 40 %. Moderate segmental systolic dysfunction (see wall motion). Normal LV size. Contrast injection was performed. Ordering Physician: Miah Emanuel Referring Physician: Dez Levin Performed By: Nakul Angel RCS Meaningful Use Info Ischemic Stroke Statin Dosing Therapy Reference: STATIN DOSE THERAPY REFERENCE: * Patients > 75 years receive moderate or high dose statin therapy. * Patients 75 years or YOUNGER should receive HIGH intensity statin dose unless contraindicated. You will be required to document reason for non-treatment if statin daily dose does not meet guidelines. HIGH DOSE STATIN THERAPY DAILY Atorvastatin > than or = to 40 mg Rosuvastatin > than or = to 20 mg Amlodipine + Atorvastatin > than or = to 2.5/40 mg Ezetimibe + Simvastatin 10/80 mg Simvastatin 80mg Discharge Plan Admission Admit Date/Time: 07/23/24 00:42 Attending Provider: Jenifer Barba Primary Care Provider: Fallon Guevara Consulting Providers: Miah Emanuel; Walter Sampson Discharge Orders/Prescriptions Prescriptions: No Action duloxetine [Cymbalta] 60 mg capsule,delayed release(DR/EC) 60 mg PO QDAY atorvastatin 20 mg tablet 20 mg PO QHS bisoprolol-hydrochlorothiazide 1 TAB tablet 1 tab PO DAILY Referrals / Follow Up: Fallon Guevara MD [Primary Care Provider] -
--- NOTE | 2024-07-23 14:59 | DS.PCM_ITS ---
Providers Date of Admission: 07/23/24 Date of Discharge: 07/23/24 Primary Care Physician: Dr. Fallon Guevara MD Consultations 07/23/24 01:19 Consult: Cardiology Routine Consulting Provider: Walter Sampson Reason for Consult: NSTEMI EMERGENT Consult: No MD Notified: Yes Date Notified: 07/23/24 Time Notified: 07:24 Method of Notification: Text Reason For Visit: NSTEMI Diagnosis Discharge Diagnosis (1) Non-ST elevation NC (NSTEMI): Status: Acute Code(s): I21.4 - Non-ST elevation (NSTEMI) myocardial infarction (2) Hypertension: Status: Chronic Code(s): I10 - Essential (primary) hypertension Qualifiers: Hypertension type: primary hypertension Qualified Code(s): I10 - Essential (primary) hypertension (3) Hyperlipidemia: Status: Acute Code(s): E78.5 - Hyperlipidemia, unspecified Qualifiers: Hyperlipidemia type: pure hypercholesterolemia Qualified Code(s): E 78.00 - Pure hypercholesterolemia, unspecified (4) Nicotine dependence: Status: Acute Code(s): F17.200 - Nicotine dependence, unspecified, uncomplicated Qualifiers: Nicotine product type: cigarettes Substance use status: uncomplicated Qualified Code(s): F17.210 - Nicotine dependence, cigarettes, uncomplicated Medications at Discharge Home Medications bisoprolol 5 mg-hydrochlorothiazide 6.25 mg tablet 1 tab PO DAILY 11/25/13 duloxetine 60 mg capsule,delayed release (Cymbalta) 60 mg PO QDAY 09/21/17 atorvastatin 20 mg tablet 20 mg PO QHS 09/14/20 Hospital Course Operations None Procedures 2-D Echocardiogram and Cardiac catheterization Summary of Care Provided Minutes Spent on Discharge: 45 Hospital Course: Patient is a 49-year-old female with past medical history as outlined was admitted via the ED on 07/23/2024 with complaint of chest pain The chest pain had developed any on the day of admission and said it also felt like chest pressure. It did not radiate down her arms or into her back. The pain persisted so she came into the ED for further evaluation. Initial troponin was 193 and trended up to 706. EKG showed no acute ST changes. CT of the chest was negative for any evidence of PE. She was admitted and managed for non-STEMI. She was given a loading dose of aspirin and a dose of therapeutic Lovenox. Cardiology was consulted. She had 2D echo which showed EF of 40% and moderate segmental systolic dysfunction with akinesia of the apex and regional wall motion abnormalities. She had cardiac cath which showed severe triple-vessel disease involving the proximal left anterior descending artery, mid to distal LAD proximal circumflex artery and proximal right coronary artery. Cardiology recommended transfer for evaluation for CABG. She was transferred to [facility] on 07/23/[address]24 to the service of Dr. Chapman. Patient seen and examined on day of discharge. She had no active complaints. She denied any chest pain at time of review. Review of systems otherwise negative. Labs and vitals reviewed. Home medication reviewed and reconciled. Physical Exam Const alert, oriented x3 and no apparent distress General Appearance: cooperative and comfortable Orientation / Consciousness: awake Exam Limitations: no limitations HEENT normocephalic, head/scalp atraumatic, hearing grossly normal bilaterally and moist oral mucous membranes Mouth: oral and palatal mucosa normal Eyes PERRL, EOMs intact bilaterally and conjunctivae normal Neck no lymphadenopathy and supple Resp normal respiratory effort, no retractions, no use of accessory muscles and clear to auscultation bilaterally Cardio regular rate, regular rhythm, S1 normal heart sound, S2 normal heart sound and no murmurs GI normal to inspection, nondistended, normoactive bowel sounds, soft to palpation, non-tender and non-distended Extremity normal to inspection, full ROM and no clubbing, cyanosis or edema Skin no rashes or lesions noted Neuro oriented x3, CN's II-XII intact bilaterally, moves all extremities and no focal motor deficits Sensorium / Orientation: awake and alert Motor Exam: strength 5/5 throughout Psych affect normal Weight / BMI Weight Weight: 199 lb 8.293 oz Body Mass Index (BMI) 33.2 ABG / Lab / Microbiology Data 07/23/24 03:44 07/23/24 03:44 Laboratory: Laboratory Results - last 24 hr 07/22/24 21:15: WBC 10.5, RBC 4.44, Hgb 14.3, Hct 43.4, MCV 97.7, MCH 32.2 H, MCHC 32.9, RDW Std Deviation 51.1 H, RDW Coeff of Rui 14.1, Plt Count 315, MPV 10.4, Immature Gran % (Auto) 0.400, Neut % (Auto) 57.6, Lymph % (Auto) 33.4, [place] % (Auto) 6.2, Eos % (Auto) 1.7, Baso % (Auto) 0.7, Absolute Neuts (auto) 6.0, Absolute Lymphs (auto) 3.49, Nucleated RBC % 0, D-Dimer Quant (PE/DVT) 0.27, Sodium 140, Potassium 3.4 L, Chloride 107, Carbon Dioxide 27.0, Anion Gap 6, BUN 8, Creatinine 0.85, Est GFR (MDRD) Af Amer 92, Est GFR (MDRD) Non-Af 76, BUN/Creatinine Ratio 9.4 L, Glucose 115 H, Hemoglobin A1c 5.9 H, Calcium 9.3, T roponin I High Sens 193 H*, B-Natriuretic Peptide 38.3 07/22/24 23:10: Phosphorus 1.9 L, Magnesium 1.9, Troponin I High Sens 706 H*, TSH 1.450 07/23/24 03:44: WBC 10.5, RBC 4.00 L, Hgb 13.1, Hct 38.9, MCV 97.3, MCH 32.8 H, MCHC 33.7, RDW Std Deviation 51.2 H, RDW Coeff of Rui 14.3, Plt Count 284, MPV 10.6, Sodium 140, Potassium 3.9, Chloride 110 H, Carbon Dioxide 27.0, Anion Gap 3 L, BUN 8, Creatinine 0.65, Estim Creat Clear Calc 118.91, Est GFR (MDRD) Af Amer 125, Est GFR (MDRD) Non-Af 103, BUN/Creatinine Ratio 12.3, Glucose 110 H, Calcium 8.9, Troponin I High Sens 970 H* 07/23/24 07:32: Triglycerides 463 H, Cholesterol 279 H, LDL Cholesterol TNP, VLDL Cholesterol TNP, HDL Cholesterol 32 L Radiography Diagnostic Testing: Radiology Impression Chest X-Ray 07/22/24 21:20 IMPRESSION: No acute findings in the chest. Electronically Signed: Gilberto Carrillo DO at 21:30 EST , Chest CTA 07/22/24 23:34 IMPRESSION: No pulmonary embolism. Mild edema. Pulmonary nodules in the lingula measure up to 0.4 cm. According to the updated 2017 Fleischner Society recommendations, the advised follow-up imaging for solid nodules < 6 mm is: LOW RISK PATIENT: No routine follow-up. HIGH RISK PATIENT: Optional CT at 12 months. Electronically Signed: Beck Damon MD at 0:33 EST , Echocardiogram 07/23/24 01:19 Interpretation Summary The left ventricular ejection fraction is 40 %. Moderate segmental systolic dysfunction (see wall motion). Normal LV size. Contrast injection was performed. Ordering Physician: Miah Emanuel Referring Physician: Dez Levin Performed By: Nakul Angel RCS D/C Instructions Discharge Diet: Low fat / Low cholesterol Discharge Activity: Return to Normal Activity DC O2, CPAP, BIPAP Needs Home O2 Discharge instructions: No Meaningful Use Info Meaningful Use Meaningful Use Diagnoses (Choose all that apply): AMI AMI/Post PCI/Angioplasty Aspirin given w/in 24hrs of arrival?: Yes ASA at discharge?: Yes Antiplatelet Therapy at Discharge:: Yes Statins at discharge?: Yes Ovidio/ARB at discharge?: Yes Beta Kelsy at discharge?: Yes Done w/ Acute NC measure.: Yes Documented LVEF (%): 40 Ischemic Stroke Statin Dosing Therapy Reference: STATIN DOSE THERAPY REFERENCE: * Patients > 75 years receive moderate or high dose statin therapy. * Patients 75 years or YOUNGER should receive HIGH intensity statin dose unless contraindicated. You will be required to document reason for non-treatment if statin daily dose does not meet guidelines. HIGH DOSE STATIN THERAPY DAILY Atorvastatin > than or = to 40 mg Rosuvastatin > than or = to 20 mg Amlodipine + Atorvastatin > than or = to 2.5/40 mg Ezetimibe + Simvastatin 10/80 mg Simvastatin 80mg Discharge Plan Admission Admit Date/Time: 07/23/24 00:42 Primary Reason for Your Visit: nonstemi Attending Provider: Jenifer Barba Primary Care Provider: Fallon Guevara Consulting Providers: Miah Emanuel; Walter Sampson Discharge Orders/Prescriptions Prescriptions: No Action duloxetine [Cymbalta] 60 mg capsule,delayed release(DR/EC) 60 mg PO QDAY atorvastatin 20 mg tablet 20 mg PO QHS bisoprolol-hydrochlorothiazide 1 TAB tablet 1 tab PO DAILY Referrals / Follow Up: Fallon Guevara MD [Primary Care Provider] - Disposition Disposition (needs filled in before D/C Order can be placed): Acute Care Hospital Charges/Coding Visit Charges Inpatient E&M: 43861 Disch Hosp >30min
--- NOTE | 2024-07-23 15:04 | NURSING ---
CALLED REPORT TO MANJU AT [facility]
== END 2024-07-23 14:50 | disposition short-term general hospital (02) | DRG 282 ==
LOC: ED 07-23 00:42 → ICU 07-23 01:01 → PCU 07-25 15:24
PROVIDERS: Admitting Provider Hospitalist; Emergency Provider Emergency Medicine; PCP Family Medicine; Referring Provider Emergency Medicine; Visit Provider Student in an Organized Health Care Education/Training Program
DX: I21.4 Non-ST elevation (NSTEMI) myocardial infarction (principal); E66.811 Obesity, class 1; I10 Essential (primary) hypertension; F32.A Depression, unspecified; F41.9 Anxiety disorder, unspecified; E78.00 Pure hypercholesterolemia, unspecified; F17.210 Nicotine dependence, cigarettes, uncomplicated; Z68.33 Body mass index [BMI] 33.0-33.9, adult; Z79.899 Other long term (current) drug therapy; Z82.49 Family history of ischemic heart disease and other diseases of the circulatory system
CPT/HCPCS: 71046; 71275; 80048; 80061; 83036; 83735; 83880; 84100; 84443; 84484; 85025; 85027; 85379; 93005; 93306; 93458; 99152; 99153; 99285; Q9957; Q9967; A4216; C1769; C1894; C8929

== ENCOUNTER → 2025-02-06 | Outpatient (CLI) | payer SELFPAY ==
[2025-02-06 11:28] LABS: AST(SGOT) 17 U/L (<=31); Alanine Aminotransfer ALT/SGPT 13 U/L (<=34); Albumin, Serum 4.0 g/dL (3.5-5.0); Alkaline Phosphatase 71 U/L (35-104); Anion Gap 12 (5-15); BUN 6 mg/dL (4-19); BUN/Creat Ratio 7.3 RATIO (10-20); Calcium,Total 9.5 mg/dL (7.6-11.0); Carbon Dioxide 24.3 mmol/L (21.0-32.0); Chloride 105 mmol/L (98-108); Cholesterol 147 mg/dL (<=200); Globulin 2.5 g/dL (2.2-4.2); Glucose 87 mg/dL (70-99); Low Density Lipoprotein Calc. 50 mg/dL; Potassium 3.9 mmol/L (3.3-5.1); Triglycerides 267 mg/dL; Very Low Density Lipoprotein 53 mg/dL (5-40); cholesterol:hdl ratio screen 3.38
== END | disposition home or self-care (01) ==
LOC: MFPLAB 09:25
PROVIDERS: PCP Family Medicine; Visit Provider Physician Assistant Medical
DX: I35.1 Nonrheumatic aortic (valve) insufficiency (principal); F17.210 Nicotine dependence, cigarettes, uncomplicated; Z95.5 Presence of coronary angioplasty implant and graft
CPT/HCPCS: 36415; 80053; 80061